=== PATIENT | female | born 1950 | race Caucasian/White ===

== ENCOUNTER 2017-09-13 18:49 | Emergency (ER) | payer MEDICARE ==
[~2017-09-13] VITALS: Ht 167.6 cm; Wt 81.7 kg
[~2017-09-13 18:49] MED LIST: ACYCLOVIR400 MG PO; BUPROPION HCL150 M2 PO; FUROSEMIDE40 MG PO; LANSOPRAZOLE30 MG PO; LOSARTAN POTASS50 MG PO; METFORMIN HCL500 M1 PO; METOPROLOL SUCC25 MG PO; OMEPRAZOLE20 MG PO; RANITIDINE HCL150 MG PO; SIMVASTATIN80 MG PO; TEMAZEPAM15 MG PO
[2017-09-13] MEDS ORDERED: TOUJEO SOL300 UNIT/1 SUB-Q (19:01)
[2017-09-13] MEDS ORDERED: DEMADEX20 MG PO (19:01)
[2017-09-13] MEDS ORDERED: ESTRACE1 MG PO (19:03)
[2017-09-13] MEDS ORDERED: NEURONTIN300 MG PO (19:03)
[2017-09-13] MEDS ORDERED: SPIRIVA18 MCG INH (19:04)
[2017-09-13] MEDS ORDERED: [UNRECOGNIZED DRUG - OTHER] (19:05)
[2017-09-13] MEDS ORDERED: PROMETHAZINE HC25 M1 PO (19:06)
[2017-09-13] MEDS ORDERED: ZOFRAN ODT4 MG PO (21:16)
== END 2017-09-13 21:39 | disposition home or self-care (01) ==
LOC: ED 18:49
DX: A08.4 Viral intestinal infection, unspecified (principal); E11.9 Type 2 diabetes mellitus without complications; I10 Essential (primary) hypertension; Z87.891 Personal history of nicotine dependence; Z90.710 Acquired absence of both cervix and uterus; Z88.5 Allergy status to narcotic agent; Z79.4 Long term (current) use of insulin; Z79.899 Other long term (current) drug therapy
CPT/HCPCS: 80053; 85025; 96361; 96374; 99283; J2405; J7030

== ENCOUNTER 2018-02-27 05:54 | Emergency (ER) | payer MEDICARE ==
[~2018-02-27] VITALS: Ht 167.6 cm; Wt 81.7 kg
[~2018-02-27 05:54] MED LIST changes: +DEMADEX20 MG PO; +ESTRACE1 MG PO; +NEURONTIN300 MG PO; +PROMETHAZINE HC25 M1 PO; +SPIRIVA18 MCG INH; +TOUJEO SOL300 UNIT/1 SUB-Q; +ZOFRAN ODT4 MG PO; +[UNRECOGNIZED DRUG - OTHER]
[2018-02-27] MEDS ORDERED: TESSALON PERLE100 MG PO (06:27)
[2018-02-27] MEDS ORDERED: LEVAQUIN750 MG PO (06:27)
--- NOTE | 2018-02-27 07:07 | EKG ---
[facility] [address] [place] [address] Signed Normal sinus rhythm Normal ECG No previous ECGs available Confirmed by KENNY ARANGO MD ([id number]) on 02/27/2018 7:07:26 AM Electronically Signed By: KENNY ARANGO MD 02/27/18 0707 PATIENT NAME: GEORGIE SAXENA Electrocardiogram DATE OF : 46 PHYSICIAN: KENNY ARANGO MD REPORT #: [id number] REPORT IS CONFIDENTIAL AND NOT TO BE RELEASED WITHOUT AUTHORIZATION
[2018-04-09] MEDS ORDERED: TYLENOL WITH C1 EACH PO (06:16)
[2018-04-09] MEDS ORDERED: AUGMENTIN 500-1 EACH PO (08:41)
== END 2018-02-27 06:37 | disposition home or self-care (01) ==
LOC: ED 05:54
DX: J18.9 Pneumonia, unspecified organism (principal); I10 Essential (primary) hypertension; E11.9 Type 2 diabetes mellitus without complications; Z87.891 Personal history of nicotine dependence; Z88.5 Allergy status to narcotic agent; Z79.4 Long term (current) use of insulin; Z79.899 Other long term (current) drug therapy
CPT/HCPCS: 71046; 93005; 93010; 99283

== ENCOUNTER 2018-12-05 09:36 | Emergency (ER) | payer MEDICARE ==
[~2018-12-05] VITALS: Ht 167.6 cm; Wt 82.5 kg
[~2018-12-05 09:36] MED LIST changes: +AUGMENTIN 500-1 EACH PO; +LEVAQUIN750 MG PO; +TESSALON PERLE100 MG PO; +TYLENOL WITH C1 EACH PO
--- OUTSIDE RECORDS SUMMARY | 2018-12-05 09:38 | XMS ---
PreManage Notification: GEORGIE SAXENA Security Emt Intermediate Events No recent Security Events currently on file CRITERIA MET - PDMP CARE PROVIDERS Tristen Rendon Current PHONE: Unknown César has no Care Guidelines for this patient. E.Mary VISIT COUNT (12 MO.) 2 JANIYA Puckett TOTAL 2 NOTE: Visits indicate total known visits. ED/UCC VISIT TRACKING (12 MO.) 12/05/2018 09:37 JANIYA Perez OR TYPE: Emergency COMPLAINT: - DIZZINESS 02/27/2018 05:55 JANIYA Perez OR TYPE: Emergency COMPLAINT: - SOB DIAGNOSES: - Pneumonia, unspecified organism - Type 2 diabetes mellitus without complications - FPC (current) use of insulin - Other care home (current) drug therapy - Allergy status to narcotic agent status - Personal history of nicotine dependence - Cough - Essential (primary) hypertension INPATIENT VISIT TRACKING (12 MO.) No inpatient visits to display in this time frame [id number]
--- NOTE | 2018-12-05 16:53 | EKG ---
[facility] [address] [place], [place] [address] Signed Normal sinus rhythm Possible Left atrial enlargement Borderline ECG When compared with ECG of 27-FEB-2018 06:04, No significant change was found Confirmed by JESSICA CARTER DO ([id number]) on 12/05/2018 4:53:21 PM Electronically Signed By: JESSICA CARTER DO 12/05/18 1653 PATIENT NAME: GEORGIE SAXENA Electrocardiogram DATE OF : 46 PHYSICIAN: JESSICA CARTER DO REPORT #: [id number] REPORT IS CONFIDENTIAL AND NOT TO BE RELEASED WITHOUT AUTHORIZATION
== END 2018-12-05 12:18 | disposition home or self-care (01) ==
LOC: ED 09:36
DX: R42 Dizziness and giddiness (principal); F64.9 Gender identity disorder, unspecified; E11.9 Type 2 diabetes mellitus without complications; I10 Essential (primary) hypertension; E78.00 Pure hypercholesterolemia, unspecified; Z87.891 Personal history of nicotine dependence; Z90.710 Acquired absence of both cervix and uterus; Z79.899 Other long term (current) drug therapy; Z79.4 Long term (current) use of insulin
CPT/HCPCS: 80053; 81001; 84484; 85025; 93005; 93010; 99284-25

== ENCOUNTER 2021-01-27 06:27 | Emergency (ER) | payer OTHER, MEDICARE ==
[~2021-01-27] VITALS: Ht 167.6 cm; Wt 79.4 kg
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
== END 2021-01-27 07:57 | disposition home or self-care (01) ==
LOC: ED 06:27
DX: S13.9XXA Sprain of joints and ligaments of unspecified parts of neck, initial encounter (principal); R51.9 Headache, unspecified; V40.5XXA Car driver injured in collision with pedestrian or animal in traffic accident, initial encounter; E11.9 Type 2 diabetes mellitus without complications; I10 Essential (primary) hypertension; E78.00 Pure hypercholesterolemia, unspecified; Z87.891 Personal history of nicotine dependence; Z88.0 Allergy status to penicillin; Z79.899 Other long term (current) drug therapy; Z79.4 Long term (current) use of insulin
CPT/HCPCS: 99284; A9270

== ENCOUNTER 2024-02-15 10:52 | Inpatient (IN) | payer MEDICARE ==
[~2024-02-15] VITALS: Ht 167.6 cm; Wt 80.0 kg
--- OUTSIDE RECORDS SUMMARY | 2024-02-15 10:57 | XMS ---
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 E.Mary VISIT COUNT (12 MO.) 1 JANIYA Puckett TOTAL 1 NOTE: Visits indicate total known visits. ED/UCC VISIT TRACKING (12 MO.) 02/15/2024 10:53 JANIYA Perez OR TYPE: Emergency COMPLAINT: - COLD FLU SYMPTOMS. SOB INPATIENT VISIT TRACKING (12 MO.) No inpatient visits to display in this time frame [id number]
[2024-02-15] MEDS ORDERED: DEXAMETHASONE SOD PHOS 10 MG/ML VIAL IV ONE (12:45)
[2024-02-15] MEDS ORDERED: ALBUTEROL/IPRATROPIUM 3 ML NEB INH ONE (12:45)
[2024-02-15] MEDS ORDERED: SODIUM CHLORIDE 0.9% 1,000 ML IV PRN ×2 (12:45→13:45)
[2024-02-15 13:00] LABS: INFLUENZA B NAA NEGATIVE (NEGATIVE); RESPIRATORY SYNCYTIAL VIR NAA NEGATIVE (NEGATIVE)
[2024-02-15 13:04] LABS: BASOPHILS 0.3 % (0-2); EOSINOPHILS 1.2 % (0-6); HEMATOCRIT 34.2 % (35.0-50.0); HEMOGLOBIN 11.3 g/dL (12.0-18.0); LYMPHOCYTES 21.6 % (24-44); MCH 31.6 (27-36); MCHC 33.1 g/dl (30-36); MCV 95.4 fl (81-99); NEUTROPHILS 67.9 % (39-80); PLATELET COUNT 200 K/uL (140-440); RBC 3.58 M/ul (4.3-5.7); RDW 14.4 (10.5-15.0)
[2024-02-15 13:21] LABS: ALBUMIN 2.8 g/dL (3.4-5.0); ALBUMIN/GLOBULIN RATIO 0.74 (1.1-2.4); ANION GAP 12.7 (7-21); BILIRUBIN, TOTAL 0.4 ng/dL (0.2-1.0); BUN/CREATININE RATIO 15.78 (6.0-28.6); CREATININE, SERUM 2.47 mg/dL (0.55-1.02); MAGNESIUM 1.8 mg/dL (1.8-2.4); POTASSIUM 3.7 mmol/L (3.5-5.1); PROTEIN, TOTAL 6.6 g/dL (6.4-8.2)
[2024-02-15] MEDS ORDERED: AZITHROMYCIN 250 MG TAB PO ONE (13:45)
[2024-02-15] MEDS ORDERED: CEFTRIAXONE/SODIUM CHLORIDE 1 GM/100 ML PIGGYBACK IV ONE ×2 (13:45→20:15)
[2024-02-15] MEDS ORDERED: ATORVASTATIN CA80 MG PO (15:13)
[2024-02-15] MEDS ORDERED: BUPROPION XL300 MG PO (15:14)
[2024-02-15] MEDS ORDERED: PROCHLORPERAZINE EDISYLATE 10 MG/2 ML VIAL IV PRN (15:15)
[2024-02-15] MEDS ORDERED: SODIUM CHLORIDE 0.9% 1,000 ML IV SCH (15:15)
[2024-02-15] MEDS ORDERED: ACETAMINOPHEN 325 MG TAB PO PRN (15:15)
[2024-02-15] MEDS ORDERED: DEXTROSE 5% 1,000 ML IV PRN (15:15)
[2024-02-15] MEDS ORDERED: DEXTROSE 50% 50 ML SYR IV PRN ×2 (15:15)
[2024-02-15] MEDS ORDERED: FAMOTIDINE20 MG PO (15:15)
[2024-02-15] MEDS ORDERED: ESTRADIOL0.5 MG PO (15:15)
[2024-02-15] MEDS ORDERED: ondansetron HCL 4 MG/2 ML VIAL IV PRN (15:15)
[2024-02-15] MEDS ORDERED: IBLOOD GLUCOSE TEST STRIP 1 EA TEST XX PRN (15:15)
[2024-02-15] MEDS ORDERED: GLUCAGON,HUMAN RECOMBINANT 1 MG/ML VIAL SUB-Q PRN (15:15)
[2024-02-15] MEDS ORDERED: METOPROLOL SUC100 MG PO (15:16)
[2024-02-15] MEDS ORDERED: MELOXICAM15 MG PO (15:16)
[2024-02-15] MEDS ORDERED: LANSOPRAZOLE30 MG PO (15:16)
[2024-02-15] MEDS ORDERED: POTASSIUM CHLO10 ME1 PO (15:17)
[2024-02-15] MEDS ORDERED: TORSEMIDE20 MG PO (15:17)
[2024-02-15 16:28] VITALS: BP 174/57
--- NOTE | 2024-02-15 16:29 | NUR ---
Pt report received from MAURICIO Fortune in the ED in room 6 at bedside at about 1526 hours. While receiving report, pt states she needs to use the toilet and was escorted to the bathroom down the evelyn by family. Pt is steady on her feet. Pt transferred to M/S room 107 by this RN via stretcher and pt was able to stand and transfer to bed unassisted. VS obtained, SPO2 89% on room air, but pt and her daughter state that 89-90 is her "normal". Expiratory wheezes heard throughout lungs and were slightly diminished in bases. Pt has a harsh barky cough that she states is painful and she reports pain when coughing, in her ribs and chest. She states she has been unable to cough anything up. She is requesting cough syrup. Pt's family is in her room. Assessment complete. Encouraged pt to use her call light if her family leaves and she needs to toilet. IV fluids (NS) running at 125ml/hr per emar. Oriented pt to room. Call light in reach, warm blanket provided, side rails up.
--- NOTE | 2024-02-15 16:38 | NUR ---
medications reconciled using pharmacy records and patient interview
[2024-02-15] MEDS ORDERED: INSULIN LISPRO 100 UNIT/ML ML SUB-Q SCH (17:00)
[2024-02-15] MEDS ORDERED: IBLOOD GLUCOSE TEST STRIP 1 EA TEST VI SCH (17:00)
[2024-02-15] MEDS ORDERED: GUAIFENESIN 10 ML UNIT DOSE CUP PO PRN (17:15)
--- NOTE | 2024-02-15 17:53 | NUR ---
Pt arrived to room 107 at about 1540 hours this shift with multiple family members and has been A&O. Pt is able to ambulate independently with line and tube management. She denies pain until she coughs and then states that it hurts in her chest and throat when she coughs. She requested cough syrup, for which Dr. Quinones so kindly wrote an order. Pt is an insulin and oral medication diabetic but she does not control it at all with her diet and was discussing, with her family, having them bring her some food up so she can have what she wants and not the diet ordered for her here. Pt's sats on room air upon arrival were 89%. Pt and her daughter stated that she is normally around 89-90% at home and does not use oxygen and that she has COPD. Pt has a harsh barky sounding cough that is not productive. Pt has a patent IV in the LAC that has good blood return and is not painful. Pt was educated on s/sx of infection and when to call the nurse to assess the site. Pt's family left at dinnertime. Pt understands to use call light before she tries to go to the bathroom.
[2024-02-15 18:16] VITALS: BP 154/57
--- NOTE | 2024-02-15 19:41 | NUR ---
REPORT RECEIVED FROM DAY SHIFT RN. PT LYING IN BED ALERT AND ORIENTED. REQUESTING HOME MEDS. MD NOTIFIED. NO FURTHER NEEDS. CALL LIGHT IN REACH. WHITE BOARD UPDATED.
[2024-02-15] MEDS ORDERED: GABAPENTIN 300 MG CAP PO SCH (21:00)
[2024-02-15] MEDS ORDERED: TEMAZEPAM 15 MG CAP PO SCH (21:00)
--- NOTE | 2024-02-15 21:00 | NUR ---
MEDICATIONS, INSULIN GIVEN PER MARS. PT A/O, COUGHING OFF AND ON.
[2024-02-15 21:12] VITALS: BP 185/63
[2024-02-15] MEDS ORDERED: BENZONATATE 100 MG CAP PO PRN (22:00)
--- NOTE | 2024-02-15 22:32 | NUR ---
CALL LIGHT ANSWERED. PT UP TO BR WITH MINIMAL SBA TO VOID. BACK TO BED. REPORTS CHRONIC SOB WITH ACTIVITY. SpO2 MID 80'S ON RA UPON RETURNING TO BED. PT RECOVERS QUICKLY TO 92%. LUNGS COARSE IN LOWER LOBES. RESPIRATIONS EVEN. EVENING ASSESSMENT COMPLETE. SCHEDULED MEDS ADMIN PER EMAR. PRN FOR COUGH ADMIN PER REQUEST. DRY/HARSH COUGH NOTED. PT DENIES QUESTIONS OR CONCERS. CALL LIGHT IN REACH.
--- NOTE | 2024-02-15 23:50 | NUR ---
IV PUMP ALARMING. ISSUE RESOLVED. PT SITTING ON SIDE OF BED WITH A "COUGHING FIT" SpO2 92% ON RA. HR 90'S. WARM TEA PROVIDED. NO FURTHER NEEDS.
[2024-02-16] VITALS (12 sets, daily range): BP systolic 149–193; BP diastolic 59–81
--- NOTE | 2024-02-16 01:23 | NUR ---
HUMAN RESOURCES COMPENSATION ANALYST ALERTED THIS RN PT BP ELEVATED. NOTIFIED. NEW TELEPHONE ORDERS RECEIVED VERIFIED WITH READBACK METHOD.
[2024-02-16] MEDS ORDERED: hydrALAZINE HCL 20 MG/ML VIAL IV PRN (01:30)
--- NOTE | 2024-02-16 01:41 | NUR ---
COLLECTED URINE SAMPLE AND SENT TO LAB. GOT PATIENT ICE WATER. PATIENT IS STILL AWAKE. PATIENT HAS CALL LIGHT
--- NOTE | 2024-02-16 01:46 | NUR ---
PRN FOR BP ADMIN PER EMAR. NEW BAG IVF INFUSING WNL. ASSESSMENT COMPLETE. COARSE LUNG SOUNDS HEARD THROUGHOUT. PT DENIES SOB. SpO2 LOW 90'S. NO FURTHER NEEDS. CALL LIGHT IN REACH.
--- NOTE | 2024-02-16 03:22 | NUR ---
CALL LIGHT ANSWERED. PT REPORTS SOB WITH "JERKY" BREATHS. AUDIBLE WHEEZE NOTED. SpO2 LOW 90'S. HR 90'S. 1L/NC PLACED FOR COMFORT. MD NOTIFIED. NEW TELEPHONE ORDERS RECEIVED VERIFIED WITH READBACK METHOD.
[2024-02-16] MEDS ORDERED: ALBUTEROL/IPRATROPIUM 3 ML NEB INH PRN (03:30)
--- NOTE | 2024-02-16 03:44 | NUR ---
PT REPORTS BREATHING IMPROVED AFTER TX. SpO2 HIGH 90'S WITH 1L/NC IN PLACE. HR 90'S. WARM BLANKET PROVIDED. NO FURTHER NEEDS.
--- NOTE | 2024-02-16 04:23 | NUR ---
pt coughing, offered cough medication, accepted. hob elevated, resp even sl labored after coughing. watching tv.
[2024-02-16 05:31] LABS: BASOPHILS 0.5 % (0-2); EOSINOPHILS 0.1 % (0-6); HEMATOCRIT 30.4 % (35.0-50.0); HEMOGLOBIN 10.1 g/dL (12.0-18.0); LYMPHOCYTES 25.1 % (24-44); MCH 31.8 (27-36); MCHC 33.3 g/dl (30-36); MCV 95.5 fl (81-99); NEUTROPHILS 63.3 % (39-80); PLATELET COUNT 183 K/uL (140-440); RBC 3.19 M/ul (4.3-5.7); RDW 14.3 (10.5-15.0)
--- NOTE | 2024-02-16 05:40 | NUR ---
VS AND I&O OBTAINED. PT INCONTINENT OF SMALL AMOUNT BM AFTER COUGHING. UP TO BR WITH MINIMAL SBA TO VOID AND CHANGE BRIEF. PT INDEPENDENT WITH GONZALES CARE. LINENS CHANGED. BACK TO BED, JOHN WELL. PRN FOR HYPERTENTION ADMIN PER EMAR. 1L/NC REMAINS IN PLACE. PT DENIES SOB. SpO2 HIGH 90'S. NO FURTHER NEEDS. CALL LIGHT IN REACH.
[2024-02-16 05:47] LABS: ALBUMIN 2.4 g/dL (3.4-5.0); ALBUMIN/GLOBULIN RATIO 0.67 (1.1-2.4); ANION GAP 14.5 (7-21); BILIRUBIN, TOTAL 0.2 ng/dL (0.2-1.0); BUN/CREATININE RATIO 18.91 (6.0-28.6); CALCIUM 7.1 mg/dL (8.5-10.1); CREATININE, SERUM 1.48 mg/dL (0.55-1.02); MAGNESIUM 1.5 mg/dL (1.8-2.4); PHOSPHORUS, INORGANIC 2.6 mg/dL (2.5-4.9); POTASSIUM 3.5 mmol/L (3.5-5.1)
--- NOTE | 2024-02-16 06:57 | NUR ---
REPORT RECEIVED FROM POWER SHOVEL MECHANIC RN JOCELYN. PATIENT IS SITTING UPRIGHT IN BED WITH EYES OPEN AND RESPIRATIONS ARE EVEN AND UNLABORED. PATIENT STATED NO NEEDS AT THIS TIME. CALL LIGHT AND PERSONAL BELONGINGS ARE WITHIN REACH.
[2024-02-16] MEDS ORDERED: MAGNESIUM SULFATE 4 GM/100 ML BAG IV ONE (08:30)
[2024-02-16] MEDS ORDERED: predniSONE 20 MG TAB PO SCH (09:00)
[2024-02-16] MEDS ORDERED: ENOXAPARIN SODIUM 30 MG/0.3 ML SYR SUB-Q SCH (09:00)
[2024-02-16] MEDS ORDERED: AZITHROMYCIN 500 MG in DEXTROSE 5% 250 ML IV SCH (09:00)
[2024-02-16] MEDS ORDERED: ATORVASTATIN 40 MG TAB PO SCH (09:00)
[2024-02-16] MEDS ORDERED: LANSOPRAZOLE 30 MG TABDIS PO SCH (09:00)
[2024-02-16] MEDS ORDERED: buPROPion HCL XL 300 MG TAB.XL.24H PO SCH (09:00)
[2024-02-16] MEDS ORDERED: ENOXAPARIN SODIUM 40 MG/0.4 ML SYR SUB-Q SCH (09:00)
[2024-02-16] MEDS ORDERED: CEFTRIAXONE/SODIUM CHLORIDE 2 GM/100 ML PIGGYBACK IV SCH (09:00)
[2024-02-16] MEDS ORDERED: GABAPENTIN 600 MG TAB PO SCH (09:00)
--- NOTE | 2024-02-16 09:50 | NUR ---
FULL ASSESSMENT COMPLETE AND DOCUMENTED IN THE CHART. PATIENT IS ALERT AND ORIENTED TIMES FOUR. PATIENT WITH NO COMPLAINTS OF PAIN AT THIS TIME. LUNG SOUNDS WITH EXPIRATORY WHEEZES IN ALL LUNG ACEVES BILATERALLY. PATIENT IS ON 1 L NASAL CANNULA. PATIENT GOT A TREATMENT FROM RT AND THERE IS THE INCENTIVE SPIROMETER AT THE BEDSIDE. PATIENT WITH A DRY HACKING COUGH CARDIAC WITH NORMAL S1 AND S2. RADIAL PULSES ARE STRONG BILATERALLY. SENSATION INTACT AND PATIENT WITH NO COMPLAINTS OF NUMBNESS AND TINGLING. IV SITE IS CLEAN, DRY, AND INTACT. MAGNESIUM SULFATE IS INFUSING AT THIS TIME. IV FLUSHED WITH 10 ML NORMAL SALINE. PATIENT GIVEN FRESH CUP OF ICE WATER AND COFFEE. BOWEL TONES ARE ACTIVE IN ALL FOUR QUADRANTS. PATIENT SKIN INTACT. PATIENT STATED NO FURTHER NEEDS AT THIS TIME. CALL LIGHT AND PERSONAL BELONGINGS ARE WITHIN REACH.
--- NOTE | 2024-02-16 10:30 | NUR ---
PATIENT IS SITTING UPRIGHT IN THE CHAIR AND IS SPEAKING WITH INFRASTRUCTURE DESIGN ENGINEER. MAGENESIUM SULFATE INFUSION COMPLETE. PATIENT GIVEN FRESH CUP OF ICE WATER. IV FLUSHED WITH 10 ML NORMAL SALINE. PATIENT STATED NO FURTHER NEEDS AT THIS TIME. CALL LIGHT AND PERSONAL BELONGINGS ARE WITHIN REACH.
--- NOTE | 2024-02-16 10:39 | NUR ---
VISITED DURING SPIRITUAL CARE ROUNDS. PT EXPRESSED DESIRE TO SLEEP SO SHORT VISIT. PROVIDED SUPPORTIVE PRESENCE, PROVIDED PRAYER. PT EXPRESSED GRATITUDE.
--- NOTE | 2024-02-16 11:19 | NUR ---
PATIENT IS SITTING UPRIGHT IN THE CHAIR AFTER AMBULATING TO THE BATHROOM TO URINATE. IV FLUSHED WITH 10 ML NORMAL SALINE AND ANTIBIOTICS ARE INFUSING AT THIS TIME. PATIENT STATED NO FURTHER NEEDS AT THIS TIME. CALL LIGHT AND PERSONAL BELONGINGS ARE WITHIN REACH.
[2024-02-16] MEDS ORDERED: PHARMACY RENAL DOSE ADJUSTMENT 1 DOSE MISC PO SCH (12:00)
--- NOTE | 2024-02-16 12:34 | NUR ---
1200 INSULIN ADMINISTERED PER THE EMAR. PATIENT IS SITTING UPRIGHT IN THE CHAIR. RN PLACED DINNER AND BREAKFAST ORDER FOR THE PATIENT. IN NS IS INFUSING AT THIS TIME. PATIENT STATED NO FURTHER NEEDS AT THIS TIME. CALL LIGHT AND PERSONAL BELONGINGS ARE WITHIN REACH.
--- NOTE | 2024-02-16 13:30 | NUR ---
SPOKE WITH PATIENT DAUGHTER RICO PATIENT WAS ATTEMPTING TO NAP. PATIENT LIVES IN A ONE LEVEL APARTMENT IN [facility]. PATIENT DAUGHTER AND GRANDCHILDREN LIVE IN THE SAME COMPLEX. PATIENT DOES NOT REQUIRE ANY DME AND IS INDEPENDENT WITH ALL ADLS. PATIENT IS ABLE TO DRIVE, SHOP AND IS STILL WORKING IN ADMITTING AT THIS TIME. NO FINANCIAL NEEDS NOTED AT THIS TIME. ALL DEMOGRAPHIC INFORMATION REVIEWED. PER DAUGHTER RICO SHE BELIEVES THE PATIENT HAS NO CASE MANAGEMENT NEEDS AT THIS TIME.
--- NOTE | 2024-02-16 14:11 | NUR ---
UR NOTE INPATIENT ORDER 02/16/24 0937 CMS 2 MIDNIGHT RULE EXPECTED LOS >2 [place] PRIMARY INSURANCE: MEDICARE
--- NOTE | 2024-02-16 14:49 | NUR ---
RIGHT A/C IV REMOVED WITH CATHETER INTACT. LEFT A/C IV REMOVED WITH CATHETER INTACT.
--- NOTE | 2024-02-16 15:49 | NUR ---
PATIENT IS SITTING UPRIGHT IN BED AT THIS TIME. PATIENT WITH NO COMPLAINTS OF PAIN AT THIS TIME. IV SITE WITH NS INFUSING AT 125 ML/HR. IV DRESSING IS CLEAN DRY AND INTACT. PATIENT IS ON ROOM AIR. LUNG SOUNDS IN THE UPPER LOBES BILATERALLY WITH EXPIRATORY WHEEZES. RALES AND EXPIRATORY WHEEZES AUSCULTATED IN THE LOWER LOBES BILATERALLY. RT CAME IN TO DO A BREATHING TREATMENT AT THIS TIME. PATIENT IS NOT COUGHING AND STATED NO FURTHER NEEDS AT THIS TIME. CALL LIGHT AND PERSONAL BELONGINGS ARE WITHIN REACH.
[2024-02-16] MEDS ORDERED: METOPROLOL SUCCINATE 100 MG TABCR PO SCH (16:27)
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
--- NOTE | 2024-02-16 17:01 | NUR ---
IV SITE IS SALINE LOCKED AND IV FLUIDS HAVE BEEN DISCONTINUED. 1700 INSULIN ADMINISTERED AT THIS TIME. METOPROLOL HOME MEDICATION RESTARTED THIS EVENING WELL. VITAL SIGNS TAKEN AND DOCUMENTED IN THE CHART. DINNER TRAY IS AT THE PATIENTS BEDSIDE. REMEDIOS STATED NO FURTHER NEEDS AT THIS TIME. CALL LIGHT AND PERSONAL BELONGINGS ARE WITHIN REACH.
--- NOTE | 2024-02-16 17:20 | NUR ---
PRN TESSALON SCOTT ADMINISTERED PER THE EMAR. PATIENT IS SITTING ON THE EDGE OF BED. PATIENT STATED THEY ARE SITTING UP BECAUSE THEY WERE FEELING NAUSEOUS BUT SINCE THEY HAVE BEEN SITTING UP THEY FEEL BETTER. PATIENT STATED NOT WANTING ANY MEDICATION FOR NAUSEA. PATIENT GIVEN A FRESH CUP OF ICE WATER. PATIENT STATED NO FURTHER NEEDS AT THIS TIME. CALL LIGHT AND PERSONAL BELONGINGS ARE WITHIN REACH.
--- NOTE | 2024-02-16 17:50 | NUR ---
BP WAS 188/7N WITH A MAP OF 103. HR WAS 101. PATIENT WITH NO COMPLAINTS OF NAUSEA AT THIS TIME. PATIENT STATED NO FURTHER NEEDS AT THIS TIME. CALL LIGHT AND PERSONAL BELONGINGS ARE WITHIN REACH.
--- NOTE | 2024-02-16 17:57 | NUR ---
RN NOTIFIED OF THE PATIENTS BP, MAP, AND HR. MD GAVE VERBAL ORDER TO RE-CHECK BP IN ONE HOUR AND IF THE SYSTOLIC IS GREATER THAN 160 TO GIVE THE PRN HYDRALAZINE. CALL ENDED.
--- NOTE | 2024-02-16 19:30 | NUR ---
REPORT RECEIVED FROM DAY SHIFT RN. PT LYING IN BED ALERT AND ORIENTED. REQUESTING OXYGEN OFF. SpO2 98% WITH 2L/NC. PT REMAINS LOW 90'S ON RA. DENIES SOB. OCCASIONAL DRY COUGH. NO FURTHER NEEDS. FAMILY AT BEDSIDE. CALL LIGHT IN REACH. WHITE BOARD UPDATED.
[2024-02-16] MEDS ORDERED: ALBUTEROL/IPRATROPIUM 3 ML NEB INH SCH (20:00)
--- NOTE | 2024-02-16 20:13 | NUR ---
VS AND I&O OBTAINED. EVENING ASSESSMENT COMPLETE. PT REMAINS ON RA. SpO2 MID 90'S. PT DENIES SOB AT REST. LUNGS COARSE WITH OCCASIONAL WHEEZE IN LLL. PT REQUESTING PRN FOR SLEEP. NOTIFIED. ORDERS PLACED.
[2024-02-16] MEDS ORDERED: INSULIN GLARGINE-YFGN 100 UNIT/ML ML SUB-Q SCH (21:00)
[2024-02-16] MEDS ORDERED: hydrOXYzine pamoate 25 MG CAP PO SCH (21:00)
[2024-02-16] MEDS ORDERED: LOSARTAN POTASSIUM 50 MG TAB PO SCH (21:00)
--- NOTE | 2024-02-16 21:33 | NUR ---
PT SITTING ON SIDE OF BED PLAYING GAME ON PHONE. SLEEP AIDS ADMINISTERED. ROOM TEMP ADJUSTED. PT DENIES PAIN. NO FURTHER NEEDS. BED ALARM FOR SAFETY.
--- NOTE | 2024-02-16 23:44 | NUR ---
CALL LIGHT ANSWERED. PT UP TO BR WITH MINIMAL SBA TO VOID 100 ML YELLOW URINE. BACK TO BED, JOHN WELL. GAIT STEADY. NO FURTHER NEEDS. BED ALARM FOR SAFETY.
[2024-02-17] VITALS (7 sets, daily range): BP systolic 156–200; BP diastolic 61–83
--- NOTE | 2024-02-17 02:14 | NUR ---
CALL LIGHT ANSWERED. PT UP TO BR TO VOID WITH SBA. BACK TO BED, JOHN WELL. ASSESSMENT COMPLETE. SPOT CHECK SpO2 85-88% ON RA. 1L/NC IN PLACE. PT DENIES SOB. FRESH WATER PROVIDED. NO FURTHER NEEDS. CALL LIGHT IN REACH.
--- NOTE | 2024-02-17 04:20 | NUR ---
PT UP TO BR TO VOID. BACK TO BED. GAIT STEADY. SpO2 90% ON RA UPON RETURNING TO BED. OXYGEN OFF AT THIS TIME. NO FURTHER NEEDS.
--- NOTE | 2024-02-17 05:20 | NUR ---
LAB IN FOR MORNING DRAW. PT SITTING IN RECLINER. REPORTS FEELING MUCH BETTER THIS AM AFTER GETTING SLEEP. VS AND I&O OBTAINED, WNL. SpO2 92% ON RA. PT REPORTS SLIGHT NAUSEA THAT SHE BELIEVES IS DUE TO NOT HAVING DINNER LAST NIGHT. SALTINE CRACKERS PROVIDED. PRN FOR NAUSEA OFFERED, PT DECLINED. NO FURTHER NEEDS.
[2024-02-17 05:26] LABS: BASOPHILS 0.4 % (0-2); EOSINOPHILS 0.2 % (0-6); HEMATOCRIT 32.1 % (35.0-50.0); HEMOGLOBIN 10.6 g/dL (12.0-18.0); LYMPHOCYTES 18.8 % (24-44); MCH 31.3 (27-36); MCHC 33.1 g/dl (30-36); MCV 94.6 fl (81-99); MONOCYTES 6.1 % (0-12); NEUTROPHILS 74.5 % (39-80); PLATELET COUNT 235 K/uL (140-440); RBC 3.39 M/ul (4.3-5.7); RDW 14.5 (10.5-15.0)
[2024-02-17 05:39] LABS: ANION GAP 14.4 (7-21); BUN/CREATININE RATIO 11.5 (6.0-28.6); CALCIUM 7.9 mg/dL (8.5-10.1); CREATININE, SERUM 1.13 mg/dL (0.55-1.02); MAGNESIUM 2.2 mg/dL (1.8-2.4); POTASSIUM 3.4 mmol/L (3.5-5.1)
--- NOTE | 2024-02-17 06:02 | NUR ---
PT REPORTS CONTINUED NAUSEA. PRN N/V ADMIN PER EMAR. NO FURTHER NEEDS.
--- NOTE | 2024-02-17 07:10 | NUR ---
RECEIVED REPORT FROM MAURICIO BANKS. PT UP TO CHAIR WATCHING TV, STATES NO NEEDS AT THIS TIME, CALL LIGHT WITHIN REACH. ASSUMING CARE OF PT.
[2024-02-17] MEDS ORDERED: POTASSIUM CHLORIDE 40 MEQ,LIDOCAINE HCL 1% 40 MG in DEXTROSE 5% 500 ML IV ONE (07:15)
--- NOTE | 2024-02-17 08:08 | NUR ---
CROWN POUNCER ENTERED ROOM FOR MORNING ROUNDING. PT IS UP SITTING IN HER CHAIR. CROWN POUNCER GAVE PT FRESH ICE WATER PT STATES NO FURTHER COMPLAINTS OR CONCERNS
[2024-02-17] MEDS ORDERED: ENOXAPARIN SODIUM 40 MG/0.4 ML SYR SUB-Q SCH (09:00)
--- NOTE | 2024-02-17 09:04 | NUR ---
PT UP TO CHAIR. TAKES PO MEDICATIONS WITHOUT DIFFICULTY. PT STATES SHE IS HAVING 8/10 HEADACHE PAIN, REQUESTS PRN TYLENOL, GIVEN. PT FINISHES BREAKFAST, TRAY TAKEN. UPPER LOBES REMAIN CLEAR, LOWER LOBES COARSE. PT DENIES COUGH AT THIS TIME. PT CONTINUES TO HAVE CHRONIC NEUROPATHY. PT STATES NO NEEDS AT THIS TIME, CALL LIGHT WITHIN REACH.
--- NOTE | 2024-02-17 09:17 | NUR ---
VERIFIED WITH MD, PT HAS POTASSIUM/FLUIDS RUNNING AT THIS TIME, WHICH IS INCOMPATIBLE WITH IV AZITHROMYCIN, HE WILL CHANGE HER OVER TO ORAL ANTIBIOTICS SHE IS DISCHARGING HOME TODAY. PRIMARY RN-CONI INFORMED WELL, AWAITING NEW ORDERS TO BE INPUT.
[2024-02-17] MEDS ORDERED: AZITHROMYCIN 250 MG TAB PO ONE (09:30)
[2024-02-17] MEDS ORDERED: CEFDINIR300 MG PO (09:31)
[2024-02-17] MEDS ORDERED: AZITHROMYCIN250 MG PO (09:31)
[2024-02-17] MEDS ORDERED: BENZONATATE100 MG PO (09:33)
--- NOTE | 2024-02-17 10:02 | NUR ---
PT WAS IN ROOM, IV ALARMING, C/O HOT/SWEATY, COLD WASH CLOTH PROVIDED TO PATIENT. BP IS ELEVATED BUT PATIENT IS SITTING ON EDGE OF BED, WANTED TO WAIT ON MEDS AT THIS TIME AND JUST SEE IF HER BP IMPROVES SHE SITS ON EDGE OF BED. REPEAT VITALS FROM CAREGIVER STILL SHOW ELEVATED BP. PRIMARY RN NOTIFIED OF PATIENT UPDATE. SHE WILL FOLLOW-UP WITH MEDS/HYDRALAZINE.
--- NOTE | 2024-02-17 10:51 | NUR ---
PT UP TO RESTROOM WITH SBA, STATES SHE WOULD LIKE TO SIT FOR AWHILE, INSTRUCTED TO PULL CALL LIGHT IN BATHROOM WHEN FINISHED, PT VERBALIZES UNDERSTANDING.
--- NOTE | 2024-02-17 11:01 | NUR ---
PT BACK TO BED FROM RESTROOM WITH SBA. PT STATES NO NEEDS AT THIS TIME, CALL LIGHT WITHIN REACH.
--- NOTE | 2024-02-17 12:05 | NUR ---
PT DRESSES SELF IN OWN CLOTHES. VSS. IV DC'D WNL, WRAPPED IN GAUZE AND COBAN PER PROTOCOL. PT LEAVING WITH ALL PERSONAL BELONGINGS. DISCHARGE EDUCATION AND PACKET GIVEN, PT VERBALIZES UNDERSTANDING AND STATES ALL QUESTIONS HAVE BEEN ANSWERED. PT AMBULATES TO WHEELCHAIR WITH SBA, WHEELED TO FRONT OF BUILDING BY NURSING PERSONEL.
[2024-02-17 12:41] LABS: STREPTOCOCCUS PNEUMONIAE AG,UR Negative (Negative)
[2024-02-17 18:46] LABS: LEGIONELLA PNEUMOPHILA AG,URN Negative (Negative)
== END 2024-02-17 12:05 | disposition home or self-care (01) | DRG 682 ==
LOC: ED 10:52 → MS 10:54
PROVIDERS: Emergency Medicine; ADMIT Family Medicine; ATTEND Family Medicine
DX: N17.9 Acute kidney failure, unspecified (principal); J18.9 Pneumonia, unspecified organism; J96.01 Acute respiratory failure with hypoxia; J44.0 Chronic obstructive pulmonary disease with (acute) lower respiratory infection; Z66 Do not resuscitate; E11.9 Type 2 diabetes mellitus without complications; E83.42 Hypomagnesemia; E87.6 Hypokalemia; I10 Essential (primary) hypertension; E78.00 Pure hypercholesterolemia, unspecified; Z90.710 Acquired absence of both cervix and uterus; Z87.891 Personal history of nicotine dependence; Z88.5 Allergy status to narcotic agent; Z79.899 Other long term (current) drug therapy; Z79.84 Long term (current) use of oral hypoglycemic drugs; Z79.4 Long term (current) use of insulin
CPT/HCPCS: 36415; 71045; 80048; 80053; 83735; 84100; 85025; 87449; 87502; 87899; 94640; 94760; 94761; 96361; 96365; 96375; 97161; 97166; 99285-25; A9270; J0360; J0456; J0696; J1100; J1650; J1815; J2405; J3475; J3480; J3490; J7030; J7060; J7512; Q0177; U0002

== ENCOUNTER 2024-05-13 19:09 | Inpatient (IN) | payer MEDICARE ==
[~2024-05-13] VITALS: Ht 167.6 cm; Wt 81.8 kg
[~2024-05-13 19:09] MED LIST changes: +ATORVASTATIN CA80 MG PO; +AZITHROMYCIN250 MG PO; +BENZONATATE100 MG PO; +BUPROPION XL300 MG PO; +CEFDINIR300 MG PO; +ESTRADIOL0.5 MG PO; +FAMOTIDINE20 MG PO; +MELOXICAM15 MG PO; +METOPROLOL SUC100 MG PO; +POTASSIUM CHLO10 ME1 PO; +TORSEMIDE20 MG PO
--- OUTSIDE RECORDS SUMMARY | 2024-05-13 19:10 | XMS ---
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 E.Mary VISIT COUNT (12 MO.) 2 JANIYA Puckett TOTAL 2 NOTE: Visits indicate total known visits. ED/UCC VISIT TRACKING (12 MO.) 05/13/2024 19:09 JANIYA Perez OR TYPE: Emergency COMPLAINT: - FALL 02/15/2024 10:53 JANIYA Perez OR TYPE: Emergency COMPLAINT: - COLD FLU SYMPTOMS. SOB INPATIENT VISIT TRACKING (12 MO.) 02/16/2024 09:37 JANIYA Perez OR TYPE: Medical Surgical COMPLAINT: - [place] DIAGNOSES: - Acquired absence of both cervix and uterus - Acquired absence of both cervix and uterus - Acute kidney failure, unspecified - Acute respiratory failure with hypoxia - Acute respiratory failure with hypoxia - Allergy status to narcotic agent - Allergy status to narcotic agent - Chronic obstructive pulmonary disease with (acute) lower respiratory infection - Chronic obstructive pulmonary disease with (acute) lower respiratory infection - Do not resuscitate - Do not resuscitate - Essential (primary) hypertension - Essential (primary) hypertension - Hypokalemia - Hypokalemia - Hypomagnesemia - Hypomagnesemia - bed bug exterminator (current) use of insulin - bed bug exterminator (current) use of insulin - bed bug exterminator (current) use of oral hypoglycemic drugs - assisted (current) use of oral hypoglycemic drugs - Other termite technician (current) drug therapy - Other alf (current) drug therapy - Personal history of nicotine dependence - Personal history of nicotine dependence - Pneumonia, unspecified organism - Pneumonia, unspecified organism - Pure hypercholesterolemia, unspecified - Pure hypercholesterolemia, unspecified - Type 2 diabetes mellitus without complications - Type 2 diabetes mellitus without complications [email or web address]
[2024-05-13 19:26] LABS: BASOPHILS 0.1 % (0-2); EOSINOPHILS 1.1 % (0-6); HEMATOCRIT 34.5 % (35.0-50.0); HEMOGLOBIN 11.3 g/dL (12.0-18.0); MCH 31.6 (27-36); MCHC 32.9 g/dl (30-36); MCV 96.1 fl (81-99); MONOCYTES 4.1 % (0-12); NEUTROPHILS 92.7 % (39-80); PLATELET COUNT 163 K/uL (140-440); RBC 3.59 M/ul (4.3-5.7)
[2024-05-13 19:40] LABS: ALBUMIN 2.6 g/dL (3.4-5.0); ALBUMIN/GLOBULIN RATIO 0.65 (1.1-2.4); ALCOHOL, MEDICAL <3 ng/dL (<3); ALKALINE PHOSPHATASE 297 U/L (46-116); ALT (SGPT) 484 U/L (14-59); ANION GAP 15.4 (7-21); AST (SGOT) 233 U/L (15-37); BILIRUBIN, TOTAL 2.4 ng/dL (0.2-1.0); BUN/CREATININE RATIO 14.71 (6.0-28.6); CALCIUM 8.5 mg/dL (8.5-10.1); CARBON DIOXIDE 27 mmol/L (21-32); CHLORIDE 97 mmol/L (98-107); CREATININE, SERUM 2.99 mg/dL (0.55-1.02); GLOMERULAR FILTRATION RATE,EST 16 mL/min (>60); POTASSIUM 4.4 mmol/L (3.5-5.1); PROTEIN, TOTAL 6.6 g/dL (6.4-8.2); UREA NITROGEN 44 mg/dL (7-18)
[2024-05-13 20:00] LABS: ABO O; RH POSITIVE
[2024-05-13 20:01] LABS: ANTIBODY SCREEN NEGATIVE
[2024-05-13] MEDS ORDERED: SODIUM CHLORIDE 0.9% 1,000 ML IV ONE (21:00)
[2024-05-13 21:19] LABS: BILIRUBIN, URINE NEGATIVE (negative); BLOOD/HGB, URINE NEGATIVE (Negative); KETONE, URINE NEGATIVE (Negative); LEUK ESTERASE, URINE NEGATIVE (negative); NITRITE, URINE NEGATIVE (negative); PH, URINE 5.5 (5-7)
[2024-05-13 21:37] LABS: AMPHETAMINES, URINE NEGATIVE (NEGATIVE); BARBITURATES, URINE NEGATIVE (NEGATIVE); BENZODIAZEPINE, URINE NEGATIVE (NEGATIVE); BUPRENORPHINE, URINE NEGATIVE (NEGATIVE); CANNABINOID, URINE POSITIVE (NEGATIVE); COCAINE, URINE NEGATIVE (NEGATIVE); ECSTASY, URINE NEGATIVE (NEGATIVE); FENTANYL, URINE NEGATIVE (NEGATIVE); METHADONE, URINE NEGATIVE (NEGATIVE); OPIATES, URINE NEGATIVE (NEGATIVE); OXYCODONE, URINE NEGATIVE (NEGATIVE); PHENCYCLIDINE, URINE NEGATIVE (NEGATIVE)
[2024-05-13] MEDS ORDERED: LACTATED RINGER'S 1,000 ML IV ONE (23:15)
[2024-05-14] VITALS (10 sets, daily range): BP systolic 133–186; BP diastolic 60–82
[2024-05-14 00:44] LABS: ANION GAP 12.9 (7-21); BUN/CREATININE RATIO 15.09 (6.0-28.6); CALCIUM 7.6 mg/dL (8.5-10.1); CREATININE, SERUM 2.65 mg/dL (0.55-1.02); POTASSIUM 3.9 mmol/L (3.5-5.1)
[2024-05-14 02:00] LABS: BILIRUBIN, URINE NEGATIVE (negative); BLOOD/HGB, URINE TRACE-I (Negative); KETONE, URINE NEGATIVE (Negative); LEUK ESTERASE, URINE NEGATIVE (negative); NITRITE, URINE NEGATIVE (negative); PH, URINE 5.5 (5-7)
[2024-05-14] MEDS ORDERED: SODIUM CHLORIDE 0.9% 1,000 ML IV SCH ×2 (02:00→21:15)
[2024-05-14] MEDS ORDERED: ondansetron HCL 4 MG/2 ML VIAL IV PRN ×2 (02:00→10:45)
[2024-05-14] MEDS ORDERED: HYDROmorphone HCL 1 MG/ML SYR IV PRN (02:00)
[2024-05-14] MEDS ORDERED: LIDOCAINE 2% VISCOUS 6 ML SYR TOP ONE (02:00)
[2024-05-14] MEDS ORDERED: ACETAMINOPHEN 325 MG TAB PO PRN (02:00)
--- NOTE | 2024-05-14 02:20 | NUR ---
PATIENT TO FLOOR FROM ER BY THIS RN. REPORT RECIEVED FROM OVERHAULER HELPER. PATIENT TRANSFERRED FROM STRETCHER TO BED WITH SBA. VS OBTAINED AND RECORDED. ASSESSMENT COMPLETE. PATIENT DENIES PAIN OR SOB. CPOX IN PLACE. TELE #[address] IV FLUID INFUSING PER ORDER. ICE PROVIDED PER PATIENT REQUEST. PATIENT AND DAUGHTER EDUCATED TO ROOM AND CALL LIGHT. PATIENT AND DAUGHTER VERBALIZE UNDERSTANDING. DAUGHTER HEADED HOME FOR THE NIGHT. PATIENT HAS NO FURTHER NEEDS. CALL LIGHT IN REACH.
[2024-05-14 02:22] LABS: BACTERIA, URINE RARE /hpf (negative); CASTS, URINE NONE SEEN \\lpf; COLLECTION TYPE, URINE CLEAN CATCH; CRYSTALS, URINE NONE SEEN (0-1+); EPITHELIAL CELLS, URINE SQUAMOUS 1+ /lpf (0-1+); REFLEX CULTURE, URINE No (No)
--- NOTE | 2024-05-14 03:52 | NUR ---
PATIENT RESTING IN BED WATCHING TV. PATIENT DENIES NEEDS AT THIS TIME. PATIENT 93% ON 1L NC. NO FURTHER NEEDS. CALL LIGHT IN REACH.
[2024-05-14 05:35] LABS: BASOPHILS 0.1 % (0-2); EOSINOPHILS 1.3 % (0-6); HEMATOCRIT 31.5 % (35.0-50.0); HEMOGLOBIN 10.5 g/dL (12.0-18.0); LYMPHOCYTES 4.2 % (24-44); MCH 31.8 (27-36); MCHC 33.2 g/dl (30-36); MCV 95.6 fl (81-99); MONOCYTES 5.5 % (0-12); NEUTROPHILS 88.9 % (39-80); PLATELET COUNT 120 K/uL (140-440); RBC 3.29 M/ul (4.3-5.7); RDW 14.4 (10.5-15.0)
--- NOTE | 2024-05-14 05:52 | NUR ---
DOCUMENT CONTROL COORDINATOR OBTAINED VITALS AND I&O. PT STATES NO FURTHER NEEDS AT THIS TIME. CALL LIGHT WITHIN REACH.
[2024-05-14 05:53] LABS: ALBUMIN 2.2 g/dL (3.4-5.0); ALBUMIN/GLOBULIN RATIO 0.59 (1.1-2.4); ANION GAP 12.7 (7-21); BILIRUBIN, TOTAL 1.6 ng/dL (0.2-1.0); BUN/CREATININE RATIO 15.66 (6.0-28.6); CALCIUM 7.7 mg/dL (8.5-10.1); CREATININE, SERUM 2.49 mg/dL (0.55-1.02); MAGNESIUM 1.4 mg/dL (1.8-2.4); POTASSIUM 3.7 mmol/L (3.5-5.1); PROTEIN, TOTAL 5.9 g/dL (6.4-8.2)
--- NOTE | 2024-05-14 06:35 | NUR ---
MD CALLED ABOUT PATIENT BLOOD PRESSURE AND HEART RATE. NEW ORDERS RECEIVED. ORDERS VERIFIED USING REPEATBACK METHOD. THIS RN ALSO UPDATED MD OF PATIENT MORNING GLUCOSE LAB. NO NEW ORDERS. THIS RN PROVIDED PATIENT WITH ORANGE JUICE. PATIENT DRANK ONE WHOLE CUP OF ORANGE JUICE. PATIENT DENIES S/S OF HYPOGLYCEMIA.
--- NOTE | 2024-05-14 07:05 | NUR ---
REPORT RECEIVED FROM PAROLE BOARD MEMBER RN AISSATOU. PATIENT IS LYING IN BED WITH EYES OPEN AND RESPIRATIONS ARE EVEN AND UNLABORED. PATIENT STATED NO FURTHER NEEDS AT THIS TIME. CALL LIGHT AND PERSONAL BELONGINGS ARE WITHIN REACH.
--- NOTE | 2024-05-14 07:52 | NUR ---
PT USES CALL LIGHT REQUESTING ICE WATER AND TEMPERATURE TO BE LOWERED, GIVEN. PT STATES NO FURTHER NEEDS AT THIS TIME, CALL LIGHT WITHIN REACH.
--- NOTE | 2024-05-14 08:36 | NUR ---
0900 MEDICATIONS ADMINISTERED PER THE EMAR. FULL ASSESSMENT COMPLETE AND DOCUMENTED IN THE CHART. PATIENT WITH NO COMPLAINTS OF PAIN AT THIS TIME. PATIENT IS ALERT AND ORIENTED TO SELF AND MONTH ONLY. CARDIAC WITH NORMAL S1 AND S2 ON AUSCULTATION. RADIAL PULSES ARE STRONG BILATERALLY. PATIENT IS ON TELE #9 IN SINUS RHYTHM. HR IS 95. LUNG SOUNDS ARE CLEAR IN THE UPPER LOBES BILATERALLY AND DIMINISHED IN THE BASES BILATERALLY. PATIENT IS ON 1 L NC THAT IS NOT CHRONIC. CPOX IS AT THE BEDSIDE. BOWEL TONES ARE ACTIVE IN ALL FOUR QUADRANTS. PATIENT IS ON A REGULAR DIET AND THEIR LAST BOWEL MOVEMENT WAS 05/13/24. PATIENT WITH NUMBNESS AND TINGLING IN BILATERAL LOWER EXTREMITIES. IV SITE IN THE RIGHT WRIST FLUSHED WITH 10 ML NORMAL SALINE. IV DRESSING IS CLEAN, DRY, AND INTACT. NS IS INFUSING AT 125 ML/HR. PATIENT STATED NO FURTHER NEEDS AT THIS TIME. CALL LIGHT AND PERSONAL BELONGINGS ARE WITHIN REACH.
[2024-05-14] MEDS ORDERED: LOSARTAN POTASSIUM 50 MG TAB PO SCH ×2 (09:00→12:16)
[2024-05-14] MEDS ORDERED: METOPROLOL SUCCINATE 100 MG TABCR PO SCH ×2 (09:00→12:17)
[2024-05-14] MEDS ORDERED: MAGNESIUM SULFATE 2 GM/50 ML BAG IV ONE (09:30)
[2024-05-14] MEDS ORDERED: DEXTROSE 50% 50 ML SYR IV PRN ×2 (10:45)
[2024-05-14] MEDS ORDERED: DEXTROSE 5% 1,000 ML IV PRN (10:45)
[2024-05-14] MEDS ORDERED: IBLOOD GLUCOSE TEST STRIP 1 EA TEST XX PRN (10:45)
[2024-05-14] MEDS ORDERED: GLUCAGON,HUMAN RECOMBINANT 1 MG/ML VIAL SUB-Q PRN (10:45)
--- NOTE | 2024-05-14 10:55 | NUR ---
PATIENT IS RESTING IN BED WITH EYES CLOSED AND RESPIRATIONS ARE EVEN AND UNLABORED. CPOX AT THE BEDSIDE. CALL LIGHT AND PERSONAL BELONGINGS ARE WITHIN REACH.
[2024-05-14] MEDS ORDERED: PHARMACY RENAL DOSE ADJUSTMENT 1 DOSE MISC PO SCH (12:00)
[2024-05-14] MEDS ORDERED: IBLOOD GLUCOSE TEST STRIP 1 EA TEST VI SCH (12:00)
[2024-05-14] MEDS ORDERED: INSULIN LISPRO 100 UNIT/ML ML SUB-Q SCH (12:00)
[2024-05-14] MEDS ORDERED: buPROPion HCL XL 150 MG TAB.XL.24H PO SCH (12:13)
[2024-05-14] MEDS ORDERED: GABAPENTIN 300 MG CAP PO SCH (12:15)
[2024-05-14] MEDS ORDERED: estradioL 1 MG TAB PO SCH (12:15)
[2024-05-14] MEDS ORDERED: TORSEMIDE 20 MG TAB PO SCH (12:18)
--- NOTE | 2024-05-14 12:30 | NUR ---
PATIENT IS SITTING UPRIGHT IN THE BED AND FINISHED WITH LUNCH. LUNCH TRAY REMOVED FROM THE ROOM AT THIS TIME. PATIENT WITH A VISITOR SITTING AT THE BEDSIDE. CPOX AT BEDSIDE. PATIENT STATED NO FURTHER NEEDS AT THIS TIME, CALL LIGHT AND PERSONAL BELONGINGS ARE WITHIN REACH.
[2024-05-14] MEDS ORDERED: CELECOXIB200 MG PO (12:40)
[2024-05-14] MEDS ORDERED: VENTOLIN HFA18 GM INH (12:50)
--- NOTE | 2024-05-14 13:33 | NUR ---
1200 MEDICATIONS ADMINISTERED PER THE EMAR. PATIENT IS LYING IN BED WITH A VISITOR SITTING AT THE BEDSIDE. CPOX IN PLACE. PATIENT IS ON ROOM AIR. CARDIAC WITH NORMAL S1 AND S2 ON AUSCULTATION. PATIENT WITH NO COMPLAINTS OF PAIN AT THIS TIME. IV SITE FLUSHED WITH 10 ML NORMAL SALINE. IV DRESSING IS CLEAN, DRY, AND INTACT. PATIENT IS ON TELEMETRY NUMBER 9. PATIENT IS IN SINUS RHYTHM WITH A HR OF 73. NS IS INFUSING AT 125 ML/HR. PATIENT STATED NO FURTHER NEEDS AT THIS TIME. CALL LIGHT AND PERSONAL BELONGINGS ARE WITHIN REACH.
--- NOTE | 2024-05-14 14:22 | NUR ---
PATIENT IS LYING IN BED AND SPEAKING WITH TWO VISITORS SITTING AT THE BEDSIDE. CALL LIGHT AND PERSONAL BELONGINGS ARE WITHIN REACH.
--- NOTE | 2024-05-14 15:46 | NUR ---
PATIENT IS SITTING UPRIGHT IN BED AND RESPIRATIONS ARE EVEN AND UNLABORED. PATIENT IS ON ROOM AIR. PATIENT WITH HER DAUGHTER AND SON SITTING AT THE BEDSIDE TALKING. RN GAVE UPDATE TO HER PATIENTS CHILDREN PER PATIENT REQUEST. PATIENT AND HER KIDS STATED NO FURTHER NEEDS AT THIS TIME. CALL LIGHT AND PERSONAL BELONGINGS ARE WITHIN REACH.
--- NOTE | 2024-05-14 16:00 | NUR ---
PATIENT IN BED AT THIS TIME. ADMINISTRATIVE AIDE PROVIDED PATIENT WITH FRESH ICE WATER. CALL LIGHT WITHIN REACH, NO FURTHER NEEDS AT THIS TIME.
--- NOTE | 2024-05-14 16:26 | NUR ---
MED REC COMPLETE
--- NOTE | 2024-05-14 16:43 | NUR ---
PATIENT IS LYING IN BED ON ROOM AIR WITH THE CPOX AT THE BEDSIDE. PATIENT WITH HER DAUGHTER AT THE BEDSIDE. AND RN ROUNDED WITH THE PATIENT AND FAMILY MEMBER. NOTIFIED OF PATIENT CONCERN ABOUT RESTARTING GABAPENTIN AND ESTRADIOL HOME DOSE. PATIENT STATED NO FURTHER NEEDS AT THIS TIME. CALL LIGHT AND PERSONAL BELONGINGS ARE WITHIN REACH.
--- NOTE | 2024-05-14 17:27 | NUR ---
PATIENT IS LYING IN BED WITH EYES CLOSED AND RESPIRATIONS ARE EVEN AND UNLABORED. CPOX AT THE BEDSIDE. SPO2 IS 91% ON ROOM AIR. CALL LIGHT AND PERSONAL BELONGINGS ARE WITHIN REACH.
[2024-05-14] MEDS ORDERED: ALBUTEROL SULFATE 0.083% 3 ML VIAL INH PRN (17:30)
--- NOTE | 2024-05-14 18:15 | NUR ---
PATIENT HOME BOTTLE OF ESTRADIOL PILLS DELIVERED BY THE PATIENTS DAUGHTER. PATIENT STATED "SHE TAKES IT AT NIGHT" AND MENTIONED THAT ASHOK SAID THE DOSE COULD BE VERIFIED TONIGHT. PATIENT IS ON ROOM AIR WITH THE CPOX AT THE BEDSIDE. SPO2 IS 94%. LEAD BURNER NOTIFIED OF THE SITUATION PHARMACY IS NOT IN HOUSE AT THIS TIME. PATIENT STATED NO FURTHER NEEDS AT THIS TIME. CALL LIGHT AND PERSONAL BELONGINGS ARE WITHIN REACH.
--- NOTE | 2024-05-14 19:32 | NUR ---
REPORT RECEIVED FROM DAY SHIFT RN. PT LYING IN BED ALERT AND ORIENTED. DENIES NEEDS. WHITE BOARD UPDATED. CALL LIGHT IN REACH. BED ALARM FOR SAFETY.
[2024-05-14] MEDS ORDERED: IPRATROPIUM BROMIDE 2.5 ML VIAL INH SCH (20:00)
[2024-05-14] MEDS ORDERED: ACETAMINOPHEN 500 MG TAB PO PRN (20:45)
[2024-05-14] MEDS ORDERED: TEMAZEPAM 15 MG CAP PO SCH (21:00)
[2024-05-14] MEDS ORDERED: ESTRADIOL 1 MG PO SCH (21:00)
--- NOTE | 2024-05-14 21:10 | NUR ---
EVENING ASSESSMENT COMPLETE. SCHEDULED MEDS ADMIN PER EMAR. PRN FOR 610 NÚÑEZ PAIN ADMIN. PT DENIES NAUSEA. 1L/NC IN PLACE. SpO2 LOW 90'S. TELE #[address] HR 80'S. COY PATENT WITH QS YELLOW URINE. NOTIFIED IVF BRIDGE ORDER HAD FALLEN OFF. MD TO PLACE NEW ORDERS. ASSISTED PT TO REPOSITION IN BED. PT DENIES QUESTIONS OR CONCERNS. CALL LIGHT IN REACH. BED ALARM FOR SAFETY.
--- NOTE | 2024-05-14 23:04 | NUR ---
PT RESTING IN BED WITH EYES CLOSED SNORING SOFTLY. SpO2 88% ON 1L/NC. OXYGEN TITRATED TO 2L/NC. SpO2 UP TO 91%.
[2024-05-15] VITALS (9 sets, daily range): BP systolic 150–173; BP diastolic 49–75
--- NOTE | 2024-05-15 00:30 | NUR ---
CPOX ALARMING. PT HAD REMOVED OXYGEN. SpO2 69% UPON ENTERING ROOM ON RA. OXYGEN REPLACED AND TITRATED UP BRIEFLY. PT WAKENED AND INSTRUCTED TO TAKE DEEP BREATHS THROUGH NOSE. PT ABLE TO RECOVER QUICKLY TO 96%. OXYGEN TITRATED BACK TO 2L/NC. 2PA TO REPOSITION IN BED. PT DENIES NEEDS. CALL LIGHT IN REACH. BED ALARM INTACT.
--- NOTE | 2024-05-15 01:45 | NUR ---
Provided Pt fresh ice water. No other needs expressed by Pt. Call light left in reach. Bed alarm set.
--- NOTE | 2024-05-15 03:16 | NUR ---
ASSISTED PT TO REPOSITION IN BED. SpO2 LOW 90'S WITH 2L/NC IN PLACE. PERSONAL FAN ON PER REQUEST. NO FURTHER NEEDS.
--- NOTE | 2024-05-15 04:10 | NUR ---
PT RESTING IN BED WITH EYES CLOSED. RESPIRATIONS EVEN. CALL LIGHT IN REACH.
[2024-05-15 05:12] LABS: BASOPHILS 0.2 % (0-2); EOSINOPHILS 1.8 % (0-6); HEMATOCRIT 29.1 % (35.0-50.0); HEMOGLOBIN 9.7 g/dL (12.0-18.0); LYMPHOCYTES 6.6 % (24-44); MCHC 33.4 g/dl (30-36); MCV 95.7 fl (81-99); MONOCYTES 7.9 % (0-12); NEUTROPHILS 83.5 % (39-80); PLATELET COUNT 114 K/uL (140-440); RBC 3.04 M/ul (4.3-5.7); RDW 14.6 (10.5-15.0)
[2024-05-15 05:26] LABS: ALBUMIN 2.1 g/dL (3.4-5.0); ALBUMIN/GLOBULIN RATIO 0.58 (1.1-2.4); ANION GAP 11.1 (7-21); BILIRUBIN, TOTAL 0.9 ng/dL (0.2-1.0); BUN/CREATININE RATIO 13.33 (6.0-28.6); CALCIUM 7.3 mg/dL (8.5-10.1); CREATININE, SERUM 1.95 mg/dL (0.55-1.02); MAGNESIUM 1.7 mg/dL (1.8-2.4); POTASSIUM 3.1 mmol/L (3.5-5.1); PROTEIN, TOTAL 5.7 g/dL (6.4-8.2)
--- NOTE | 2024-05-15 05:26 | NUR ---
LAB IN ROOM FOR MORNING DRAW. VS AND I&O OBTAINED. PT DENIES NEEDS. CALL LIGHT IN REACH.
--- NOTE | 2024-05-15 05:48 | NUR ---
CRITICAL LAB VALUE RECEIVED FROM LAB. BLOOD GLUCOSE 49. ACCU CHECK ON FLOOR 41. PT AWAKE AND TALKING. ORANGE JUICE WITH SUGAR PACKETS X 2 GIVEN. UPDATED. WILL RECHECK BLOOD SUGAR IN 15 MINUTES PER PROTOCOL.
--- NOTE | 2024-05-15 06:04 | NUR ---
CBG 77, PT ALERT AND ORIENTED, PUDING GIVEN. CONT TO ASSESS PER HYPOGLYCEMIA PROTOCOL
--- NOTE | 2024-05-15 07:30 | NUR ---
RECEIVED REPORT FROM MAURICIO BANKS. PT RESTING WITH EYES CLOSED, BREATHING EVEN AND UNLABORED. CALL LIGHT WITHIN REACH.
[2024-05-15] MEDS ORDERED: POTASSIUM CHLORIDE 10 MEQ TABCR PO ONE (08:15)
[2024-05-15] MEDS ORDERED: MAGNESIUM CHLORIDE 64 MG TABCR PO ONE (08:15)
[2024-05-15] MEDS ORDERED: ENOXAPARIN SODIUM 30 MG/0.3 ML SYR SUB-Q SCH (09:00)
--- NOTE | 2024-05-15 09:30 | NUR ---
PT AWAKE IN BED, DENIES PAIN OR SOB AT THIS TIME. MD TO BEDSIDE, PHYSICAL THERAPY AT THE BEDSIDE. PT GOES FOR WALK WITH THIS RN AND PHYSICAL THERAPIST, PT ABLE TO WALK TO END OF HALLWAY WITH FWW AND CONTACT GUARD ASSIST. LUNG SOUNDS DIMINISHED IN LOWER LOBES. TELE REMAINS IN PLACE. COY REMAINS IN PLACE, URINE CLEAR, YELLOW. ALLEVYN PLACED ON R KNEE ABRASION. DAUGHTER AT THE BEDSIDE. PT UP TO CHAIR, STATES NO NEEDS AT THIS TIME, CALL LIGHT WITHIN REACH.
--- NOTE | 2024-05-15 12:05 | NUR ---
PT UP TO CHAIR, TRANSFERS TO BED WITH SBA. PT DENIES PAIN, SOB, AND NAUSEA AT THIS TIME. PT STATES SHE WOULD LIKE TO TAKE A NAP AT THIS TIME, PLACED ON 2L OF O2 VIA NC D/T PT DESATTING DURING SLEEP. RT NOTIFIED. CALL LIGHT WTHIN REACH.
--- NOTE | 2024-05-15 14:06 | NUR ---
THIS RN NOTIFIES DR. SLATER REGARDING 101.3 DEGREE TEMPERATURE. STATES HE WILL ASSESS. NO NEW ORDERS AT THIS TIME.
--- NOTE | 2024-05-15 15:35 | NUR ---
PT REQUESTS CUP OF ICE, GIVEN. PT STATES NO FURTHER NEEDS AT THIS TIME, CALL LIGHT WITHIN REACH.
--- NOTE | 2024-05-15 16:09 | NUR ---
XRAY AT THE BEDSIDE.
[2024-05-15] MEDS ORDERED: AZITHROMYCIN 500 MG in DEXTROSE 5% 250 ML IV SCH (17:00)
[2024-05-15] MEDS ORDERED: CEFTRIAXONE/SODIUM CHLORIDE 2 GM/100 ML PIGGYBACK IV SCH (17:00)
--- NOTE | 2024-05-15 17:02 | NUR ---
DR. SLATER AT THE BEDSIDE UPDATING PT ON POC.
[2024-05-15 17:53] LABS: HEPATITIS A ANTIBODY, IGM Negative (Negative); HEPATITIS B CORE ANTIBODY, IGM Negative (Negative); HEPATITIS B SURFACE ANTIGEN Negative (Negative); HEPATITIS C AB CIA INTERP Negative (Negative); HEPATITIS C ANTIBODY CIA INDEX 0.06 IV (())
--- NOTE | 2024-05-15 18:33 | NUR ---
COVID SWAB COMPLETED AND SENT TO LAB.
[2024-05-15 19:19] LABS: INFLUENZA B NAA NEGATIVE (NEGATIVE); RESPIRATORY SYNCYTIAL VIR NAA NEGATIVE (NEGATIVE)
--- NOTE | 2024-05-15 19:41 | NUR ---
REPORT RECEIVED FROM DAY SHIFT RN. PT LYING IN BED ALERT AND ORIENTED. DENIES NEEDS. WHITE BOARD UPDATED. CALL LIGHT IN REACH.
--- NOTE | 2024-05-15 20:34 | NUR ---
EVENING ASSESSMENT COMPLETE. SCHEDULED MEDS ADMIN PER EMAR. PT DENIES PAIN OR NAUSEA AT THIS TIME. DENIES SOB. 2L/NC IN PLACE. SpO2 MID 90'S. LUNGS CLEAR THROUGHOUT. COY PATENT WITH CONCENTRATED URINE. ASSISTED PT TO REPOSITION IN BED. PT DENIES QUESTIONS OR CONCERNS. CALL LIGHT IN REACH.
[2024-05-15] MEDS ORDERED: estradioL 0.5 MG TABLET PO SCH (21:00)
[2024-05-15] MEDS ORDERED: TEMAZEPAM 15 MG CAP PO SCH (21:00)
--- NOTE | 2024-05-15 23:52 | NUR ---
PT RESTING IN BED WITH EYES CLOSED. RESPIRATIONS EVEN. CALL LIGHT IN REACH. BED ALARM FOR SAFETY.
--- NOTE | 2024-05-16 02:06 | NUR ---
BLOOD SUGAR CHECK 62. ORANGE JUICE AND APPLE SAUCE PROVIDED. PT COLD. TEMP 97.8. WARM BLANKET PROVIDED. ASSISTED PT TO REPOSITION IN BED. NO FURTHER NEEDS.
--- NOTE | 2024-05-16 04:00 | NUR ---
CPOX ALARMING. ISSUE RESOLVED. PT REPORTS "SORE" BACK 03/28. PRN FOR PAIN ADMIN PER EMAR. SBA TO RECLINER TO CHANGE POSITIONS. GAIT STEADY. NO FURTHER NEEDS. CALL LIGHT IN REACH.
[2024-05-16 05:13] VITALS: BP 159/64
[2024-05-16 05:29] LABS: BASOPHILS 0.2 % (0-2); EOSINOPHILS 2.6 % (0-6); HEMATOCRIT 26.5 % (35.0-50.0); HEMOGLOBIN 8.8 g/dL (12.0-18.0); LYMPHOCYTES 10.2 % (24-44); MCH 31.8 (27-36); MCHC 33.1 g/dl (30-36); MCV 95.9 fl (81-99); MONOCYTES 9.9 % (0-12); NEUTROPHILS 77.1 % (39-80); PLATELET COUNT 116 K/uL (140-440); RBC 2.77 M/ul (4.3-5.7); RDW 15.2 (10.5-15.0)
[2024-05-16 05:47] LABS: ALBUMIN 1.9 g/dL (3.4-5.0); ALBUMIN/GLOBULIN RATIO 0.54 (1.1-2.4); ANION GAP 13.5 (7-21); BILIRUBIN, TOTAL 0.5 ng/dL (0.2-1.0); BUN/CREATININE RATIO 11.92 (6.0-28.6); CALCIUM 6.9 mg/dL (8.5-10.1); CREATININE, SERUM 1.51 mg/dL (0.55-1.02); MAGNESIUM 1.7 mg/dL (1.8-2.4); POTASSIUM 3.5 mmol/L (3.5-5.1); PROTEIN, TOTAL 5.4 g/dL (6.4-8.2)
--- NOTE | 2024-05-16 05:51 | NUR ---
PT AWAKE SITTING IN RECLINER. VS AND I&O OBTAINED. SBA BACK TO BED, JOHN WELL. GAIT STEADY. NO C/O PAIN AT THIS TIME. PT REMAINS ON 2L/NC. SpO2 MID 90'S. HR 80'S. PT DENIES NEEDS. CALL LIGHT IN REACH.
[2024-05-16 05:56] VITALS: BP 159/64
[2024-05-16] MEDS ORDERED: MAGNESIUM CHLORIDE 64 MG TABCR PO ONE (07:45)
--- NOTE | 2024-05-16 07:51 | NUR ---
PT RESTING EYES CLOSED AT TIME OF SHIFT RE[PRT, LEFT UNDISTURBED. AWAKE NOW DECLINES OPENING OF BLINDS. AGREES SHE IS COMFORTABLE. CALL LIGHT AND FRESH H20 AT BEDSIDE.
[2024-05-16] MEDS ORDERED: ENOXAPARIN SODIUM 40 MG/0.4 ML SYR SUB-Q SCH (09:00)
[2024-05-16 09:42] VITALS: BP 146/56
--- NOTE | 2024-05-16 09:48 | NUR ---
In with pt for PRN Tylenol for 7 out of 10 frontal headache. Pt VS obtained by Estelle at this time. Ice pack also provided to pt to use on her forehead or back of neck if desired. Call light in reach. Denies any other needs at this time.
--- NOTE | 2024-05-16 10:24 | NUR ---
PT HAS CONTINUED RESTING IN BED THIS SHIFT ATE MUCH OF MORNING MEAL HAD A VISITOIR EARLIER. DR SLATER IN TO SEE HER PLAN GOING FORWARD DISCUSSED. PT AGREES TO AMBULATE THE HALLS SEVERAL TIMES THIS SHIFT. SATS 91% ON 1 L02 AT THIS TIME. CATH CARE COMPLETED AND EDUCATION PROVIDED
--- NOTE | 2024-05-16 11:08 | NUR ---
UR CLINICAL REVIEW: AMRILYN POPE- MEETS INPT MEDICARE FROM OBS TO INPT 05/15/24 @ 1131 NO AUTH REQUIRED PER MEDICARE RULES PLAN TO DC TO HOME VS. OTHER PLAN PENDING PT/OT RECOMMENDATIONS.
--- NOTE | 2024-05-16 11:15 | NUR ---
Spoke with Yoselin. She states she fell fro weakness and could not get her legs to work. She was in her apartment. Silvia heard her phone ringing and checked on her when she wasn't answering. She states her daughter Aldo feels she is having some confusion and wants her to move in with her. They live in the same apartment complex. Yoselin plans on closing her apartment and moving in with Aldo on dc. Pt has several pieces of DME and denies needing any more. Apartments have walk in showers. Pt denies any financial issues. Plans on dc to home when cleared medically.
--- NOTE | 2024-05-16 11:23 | NUR ---
PT IS UP AMBULATING THE MURRAY WITH P/T
[2024-05-16] MEDS ORDERED: TIOTROPIUM BROMIDE INH SCH (11:30)
--- NOTE | 2024-05-16 12:25 | NUR ---
PT SITTING UP IN THE CHAIR EATING NOON MEAL VISITOR IS PRESENT. SHE DENIES NEEDS AT THIS TIME CONTINUES ON 1 L02 SATS 91%
[2024-05-16 14:07] VITALS: BP 171/70
--- NOTE | 2024-05-16 14:29 | NUR ---
PT SLEEPING SOUNDLY ON 1 L02 SATS 89-95% CALL LIGHT AND NEEDED ITEMS IN REACH
[2024-05-16 18:20] VITALS: BP 195/65
--- NOTE | 2024-05-16 18:21 | NUR ---
DR SLATER CONTACTED R/T ELEVATED BP HE GIVES ORDER TO GIVE COZAAR EARLY AND WILL WRITE PRN FOR ANOTHER TIME
--- NOTE | 2024-05-16 18:27 | NUR ---
PT EATING FOOD FROM OUTSIDE OF HOSPITAL THIS SHIFT. REFUSES [employer] AND [employer] SERVED, FAMILY BRINGS MCDONAL[employer]. PT ORDERED TR[employer]I [employer] THIS EVENING BUT SENT IT BACK AND IS HAVING BISKITS AND GRAVY BROUGHT BY FAMILY.
[2024-05-16] MEDS ORDERED: hydrALAZINE HCL 20 MG/ML VIAL IV PRN (18:30)
--- NOTE | 2024-05-16 19:44 | NUR ---
REPORT RECEIVED FROM DAY SHIFT RN. PT LYING IN BED ALERT AND ORIENTED. REPORTS CONSTANT NAUSEA. PRN N/V ADMIN PER EMAR. DAUGHTER AT BEDSIDE. NO FURTHER NEEDS. WHITE BOARD UPDATED. CALL LIGHT IN REACH.
--- NOTE | 2024-05-16 20:47 | NUR ---
PT CALLED TO GO ON A WALK. PT TOOK A LAP WALK WITH WALKER BEHIND HER. PT IS NOW IN BED RESTING. PT HAS ICE WATER AND CALL LIGHT.
[2024-05-16 21:05] VITALS: BP 175/69
--- NOTE | 2024-05-16 21:27 | NUR ---
EVENING ASSESSMENT COMPLET. SCHEDULED MEDS ADMIN PER EMAR. PT BLOOD SUGAR 178. DISCUSSED WITH MD. TELEPHONE ORDERS RECEIVED VERIFIED WITH READBACK METHOD TO HOLD INSULIN DUE TO MORNING HYPOGLYCEMIA. PT REPORTS HEADACHE PAIN 01/26. PRN FOR PAIN ADMIN PER EMAR. O2 1L/NC IN PLACE. SpO2 93%. PT DENIES SOB. ASSISTED PT TO REPOSITION IN BED. PT DENIES QUESTIONS OR CONCERNS. CALL LIGHT IN REACH.
--- NOTE | 2024-05-16 22:41 | NUR ---
PT RESTING ON RIGHT SIDE WITH EYES CLOSED. RESPIRATIONS EVEN. SpO2 86% ON 1L/NC. OXYGEN TITRATED TO 2L TO BRING SpO2 TO 91%.
[2024-05-17] VITALS (10 sets, daily range): BP systolic 122–200; BP diastolic 48–88
--- NOTE | 2024-05-17 00:38 | NUR ---
CPOX ALARMING. SpO2 83% ON 2L/NC. PT SNORING SOFTLY. OXYGEN TITRATED TO 4L/NC TO MAINTAIN SATS >90%.
--- NOTE | 2024-05-17 01:54 | NUR ---
CALL LIGHT ANSWERED. PT WANTS TO SIT ON THE SIDE OF THE BED DUE TO FEELING LIKE "I CAN'T GET A DEEP BREATH." ASSISTED TO SIDE OF BED. SpO2 MID 90'S ON 2L/NC. HR 80'S. BP ELEVATED. PRN FOR HTN ADMIN PER EMAR. CRACKLES AUSCULTATED THROUGHOUT. RESPIRATIONS EVEN. PT ABLE TO TALK IN COMPLETE SENTENCES. DENIES CHEST PAIN. MD NOTIFIED. TELEPHONE ORDERS RECEIVED VERIFIED WITH READBACK TO ND IVF.
--- NOTE | 2024-05-17 02:34 | NUR ---
ASSISTED PT BACK TO BED. PT CONTINUES TO REPORT SOB. SpO2 MID 90'S WITH 2L/NC. HR 80'S. HOB ELEVATED. PERSONAL FAN UTILIZED. NO FURTHER NEEDS AT THIS TIME.
--- NOTE | 2024-05-17 04:55 | NUR ---
PT AWAKE IN BED. REPORTS BREATHING IMPROVED. VS AND I&O OBTAINED. PT REPORTS "CAFFEINE" HEADACHE. ICED TEA PROVIDED. PT DISCUSSING LOSS OF APPETITE AND "FOOD TASTES BAD." DIABETIC ENSURE OFFERED. NO FURTHER NEEDS AT THIS TIME. CALL LIGHT IN REACH.
[2024-05-17 05:24] LABS: HEMATOCRIT 27.5 % (35.0-50.0); MCH 31.5 (27-36); MCHC 32.9 g/dl (30-36); MCV 95.9 fl (81-99); PLATELET COUNT 118 K/uL (140-440); RBC 2.87 M/ul (4.3-5.7); RDW 15.2 (10.5-15.0)
[2024-05-17 05:39] LABS: BANDS, MANUAL DIFF 6; EOSINOPHILS, MANUAL DIFF 2; LYMPHOCYTES, MANUAL DIFF 17; MONOCYTES, MANUAL DIFF 3; NEUTROPHILS, MANUAL DIFF 72
[2024-05-17 05:43] LABS: ALBUMIN 1.8 g/dL (3.4-5.0); ALBUMIN/GLOBULIN RATIO 0.47 (1.1-2.4); ANION GAP 12.5 (7-21); BILIRUBIN, TOTAL 0.6 ng/dL (0.2-1.0); BUN/CREATININE RATIO 9.48 (6.0-28.6); CREATININE, SERUM 1.16 mg/dL (0.55-1.02); POTASSIUM 3.5 mmol/L (3.5-5.1); PROTEIN, TOTAL 5.6 g/dL (6.4-8.2)
--- NOTE | 2024-05-17 06:44 | NUR ---
bp 190/75, medicated with Hydralazine IV. pt awake, playing with phone. denies s/sx hypertension. primary RN Kandy notified
--- NOTE | 2024-05-17 07:26 | NUR ---
PT UP IN THE CHAIR AT TIME OF SHIFT REPORT DENIES PAIN OR SOB BUT DOES STATES SHE "JUST DOESN'T FEEL GOOD" NOC RN REPORTS ELEVATED BP ON HER SHIFT AND SOB VITALS TAKEN ANTICIPATE MORNING MEDS FOR BP SATS ARE 93% AT THIS TIME
--- NOTE | 2024-05-17 07:48 | NUR ---
WENT IN TO TAKE PT BLOOD SUGAR IT WAS 109 AND CHARTED. UPDATED BOARD ASKED PT IF SHE NEEDED ANYTHING ELSE, SHE DIDNT AND CALL LIGHT IS WITHIN REACH.
--- NOTE | 2024-05-17 08:40 | NUR ---
PERSONAL CARE ITEMS PROVIDED. PT UP IN THE CHAIR. DISCUSSED NUTRITION AT LENGTH PT C/O FOOD NOT TASTING GOOD. ENSURE PROVIDED PT ENCOURAGED TO JUST DRINK IT DOWN FOR THE SAKE OF NUTRITION. SNACK ITMES THAT SOUND APPETIZING DISCUSSED AND PROVIDED. PT DECLINES TO TRY TO DRINK ANY OF THE ENSURE CONTINUES TO C/O NOT FEELING WELL. PT IS WEEPY DESCRIBES BEING DEPRESSED. SHE STATES SHE NEEDS HER OWN SPIRIVA WHICH SHE GETS FROM [facility] THAT THE ONE PROVIDED HERE IS DIFFERENT. PHARMACY CONTACTED FOR EDUCATION.
--- NOTE | 2024-05-17 08:54 | NUR ---
DR SLATER IN TO SEE PT DISCUSSES PLAN GOING FORWARD ANSWERS PT QUESTIONS ADDRESSES CONCERNS.
[2024-05-17] MEDS ORDERED: TORSEMIDE 20 MG TAB PO SCH (09:00)
--- NOTE | 2024-05-17 09:26 | NUR ---
spoke with pt regarding moving to room with window and multiple visitors in room. pt stated she would like to move and would like to have no visitors today. moved to 115 and placed sign on door.
--- NOTE | 2024-05-17 09:38 | NUR ---
IN ROOM TO DC COY. PT PLACED SUPINE IN CHAIR, 10 CC OF SALINE REMOVED FROM COY BALLOON. COY REMOVED. PT TOLERATED WELL. DENIES ANY NEEDS AT THIS TIME. CALL LIGHT IN REACH.
--- NOTE | 2024-05-17 09:38 | NUR ---
PT MOVED TO ROOM WITH VIEW PER MD REQUEST BLINDS ARE LEFT OPEN. PT ENCOURAGED TO SHOWER THIS SHIFT SHE IS RESISTIVE TO THE IDEA. CLAM DIGGER NOTIFIED WILL FURTHER ENCOURAGE PT TO SHOWER AND DO PERSONAL CARES
--- NOTE | 2024-05-17 09:41 | NUR ---
ENTERING THE ROOM FOR ASSESSMENT PT IS TALKING TO VISITORS ABOUT HER INTENT TO MOVE TO THE BED (FROM THE CHAIR SHE IS SITTING IN) SO SHE CAN GET SOME SLEEP.
--- NOTE | 2024-05-17 10:00 | NUR ---
Spoke with Yoselin. Friends in the room, she denies any needs. No change in plan to move in with daughter on dc. Possible dc tomorrow or the next day.
--- NOTE | 2024-05-17 10:51 | NUR ---
PT RESTING IN BED EYES CLOSED
--- NOTE | 2024-05-17 11:10 | NUR ---
PT REQUESTED QUIET; NO VISIT. PROVIDED PRAYER.
--- NOTE | 2024-05-17 11:39 | NUR ---
PT VOIDING WITHOUT DIFFICULTY SHE IS USING THE BSC INDEPENDANTLY WHICH IS PLACED NEXT TO HER BED PER REQUEST. FRESH COFFEE PROVIDED PT D/O HEADACHE NORMALLY DRINKS CAFFINE DAILY. PT STILL RESTING IN BED ROOM TEMP ADJUSTED DENIES FURTHER NEED
--- NOTE | 2024-05-17 12:00 | NUR ---
SPOT CHECK BP IT IS ELEVATED PRN APRESOLINE ADMINISTERED
--- NOTE | 2024-05-17 12:20 | NUR ---
PT REFUSES LUNCH SERVED DENIES OFFER OF DIFFERENT ITEMS, HAS FOOD FROM DAUGHTER AT BEDSIDE SAYS SHE WILL SNACK ON THAT STUFF
--- NOTE | 2024-05-17 13:04 | NUR ---
Pt's daughter came out to let us know that the pt has a headache and is requesting some tylenol. Tylenol administered to pt per emar. Pt states she would like to take a nap as soon as her daughter leaves shortly. Advised pt that she can have a sleep mask and ear plugs to help her take a good nap, and that once she wakes, we will come in and help her get up to shower. The pt was agreeable to this. Sleep mask and ear plugs provided to patient and her daughter assisted her with donning them.
--- NOTE | 2024-05-17 13:23 | NUR ---
PT WEARING FACEMASK AND EARPLUGS RESTING SUPINE
--- NOTE | 2024-05-17 15:12 | NUR ---
Pt report received from MAURICIO [employer].
--- NOTE | 2024-05-17 17:04 | NUR ---
ZOFRAN GIVEN ORDERED FOR PT C/O NAUSEA.
--- NOTE | 2024-05-17 17:50 | NUR ---
PT SAID SHE WAS READY TO SHOWER. GOT THE BATHROOM SET UP. PT IS ABLE TO SHOWER ON HER OWN. PT IS AWARE THAT IF SHE NEEDED ANYTHING TO PULL THE CORD.
--- NOTE | 2024-05-17 18:08 | NUR ---
In for hourly rounding. Pt is sitting at the edge of the bed, after having showered with the help of her daughter. MAURICIO Bertrandod in with pt assisting her to dress and hanging IV ABX per emar.
--- NOTE | 2024-05-17 19:19 | NUR ---
In with pt for report of IV site is leaking and Heide Mccabe advised that her systolic BP is 200. IV dressing removed, IV catheter hub tightened (it was loose), and IV flushed with 10ml NS, flushes well, no leaking. IV site secured with new dressing and IV abx restarted. BP checked on left arm with a systolic reading of 203. 10mg hydralazine administered slow IVP per emar (for systolic greater than 160). Pt expresses concern over her elevated BP readings and states she wants to know what is causing this. Shortly before she called about the leaking IV, the pt was having nausea and vomiting. Assisted the pt by giving her mouthwash to rinse and spit, and by rinsing and brushing her dentures. Gave pt a cool wash cloth for her face and some scented nasal plugs to assist with decreasing her nausea by helping to eliminate the smells that bother her tummy. Lights turned down, side rails up x4, call light in reach. Television on.
--- NOTE | 2024-05-17 19:54 | NUR ---
REPORT RECEIVED FROM DAY SHIFT RN. PT LYING IN BED ALERT AND ORIENTED. DENIES NEEDS. WHITE BOARD UPDATED. CALL LIGHT IN REACH.
[2024-05-17] MEDS ORDERED: PROCHLORPERAZINE EDISYLATE 10 MG/2 ML VIAL IV PRN (20:15)
--- NOTE | 2024-05-17 20:55 | NUR ---
EVENING ASSESSMENT COMPLETE. SCHEDULED MEDS ADMIN PER EMAR. PRN FOR NAUSEA ADMIN PER EMAR. NO C/O PAIN AT THIS TIME. DENIES SOB. SpO2 88-92% ON RA. 1L/NC PLACED FOR NIGHT. CPOX IN PLACE. FINE CRACKLES AUSCULTATED BILAT LOWER LOBES. PT UP TO BSC TO VOID 300 ML YELLOW URINE. GAIT STEADY. BACK TO BED, JOHN WELL. LIGHTS OUT AND ROOM TEMP ADJUSTED PER REQUEST. PT DENIES FURTHER NEEDS. CALL LIGHT IN REACH.
[2024-05-17] MEDS ORDERED: MELATONIN 3 MG TAB PO SCH (21:00)
--- NOTE | 2024-05-17 21:49 | NUR ---
PT CALLED TO SEE IF SHE COULD SIT IN CHAIR. PT TRANSFERED WITH WALKER, AMBULATED ABOUT 3-5 FEET. PT SAID NAUSEA WENT AWAY AND SHE DOES NOT WANT TO BE LAYING IN BED ANYMORE.PT HAS A LIGHT BLANKET ON HER. PT HAS HER ICE WATER, PHONE AND CALL LIGHT. PT ASKED US TO TURN DOWN THE TEMPATURE IN THE ROOM BECAUSE SHE WAS GETTING HOT AGAIN.
--- NOTE | 2024-05-17 22:18 | NUR ---
PATHOLOGY SPECIALIST HELP PT FROM HER CHAIR BACK TO BED. PT WANTED THE MURRAY LIGHTS TURNED DOWN BUT WILL TRY HER EYE MASK LATTER FOR SLEEP.
--- NOTE | 2024-05-18 00:03 | NUR ---
PT RESTING IN BED ON RIGHT SIDE. RESPIRATIONS EVEN. CALL LIGHT IN REACH.
--- NOTE | 2024-05-18 00:37 | NUR ---
CPOX ALARMING. PT REMOVED NC. SpO2 85% ON RA. NC REPLACED AT 2L/NC. SpO2 ABOVE 90%. HR 90'S.
--- NOTE | 2024-05-18 02:16 | NUR ---
PT RESTING IN BED WITH EYES CLOSED. RESPIRATIONS EVEN. SpO2 94% ON 2L/NC.
--- NOTE | 2024-05-18 03:44 | NUR ---
ROUNDING NOTE. PT AWAKE IN BED. SBA TO RECLINER. ON RA SpO2 LOW 80'S AFTER ACTIVITY. PT DENIES SOB. 2L/NC PLACED. SpO2 LOW 90'S. ASSESSMENT COMPLETE. FINE CRACKLES HEARD IN BLL. ICE CHIPS PROVIDED. NO FURTHER NEEDS.
[2024-05-18 05:20] LABS: BASOPHILS 0.2 % (0-2); EOSINOPHILS 1.5 % (0-6); HEMATOCRIT 30.8 % (35.0-50.0); HEMOGLOBIN 10.2 g/dL (12.0-18.0); LYMPHOCYTES 12.8 % (24-44); MCH 31.4 (27-36); MCHC 32.9 g/dl (30-36); MCV 95.4 fl (81-99); MONOCYTES 8.1 % (0-12); NEUTROPHILS 77.4 % (39-80); PLATELET COUNT 182 K/uL (140-440); RBC 3.23 M/ul (4.3-5.7); RDW 14.8 (10.5-15.0)
[2024-05-18 05:22] VITALS: BP 197/67
[2024-05-18 05:32] LABS: ALBUMIN 2.2 g/dL (3.4-5.0); ALBUMIN/GLOBULIN RATIO 0.54 (1.1-2.4); ANION GAP 14.3 (7-21); BILIRUBIN, TOTAL 0.7 ng/dL (0.2-1.0); BUN/CREATININE RATIO 7.96 (6.0-28.6); CALCIUM 7.5 mg/dL (8.5-10.1); CREATININE, SERUM 1.13 mg/dL (0.55-1.02); POTASSIUM 3.3 mmol/L (3.5-5.1); PROTEIN, TOTAL 6.3 g/dL (6.4-8.2)
--- NOTE | 2024-05-18 05:58 | NUR ---
PT BACK TO BED FROM RECLINER. VS AND I&O OBTAINED. BP ELEVATED. PRN FOR HTN ADMIN PER EMAR. PRN TYLENOL ADMIN FOR GENERALIZED DISCOMFORT. PT ON RA AT THIS TIME. SpO2 LOW 90'S. NO FURTHER NEEDS. CALL LIGHT IN REACH.
--- NOTE | 2024-05-18 07:20 | NUR ---
RECEIVED REPORT FROM MAURICIO BANKS. PT SITTING AT THE EDGE OF BED, DENIES PAIN AT THIS TIME. PT REQUESTS ICE WATER, GIVEN. PT STATES NO FURTHER NEEDS AT THIS TIME. CALL LIGHT WITHIN REACH.
[2024-05-18] MEDS ORDERED: POTASSIUM CHLORIDE 10 MEQ TABCR PO ONE (07:45)
[2024-05-18 08:15] VITALS: BP 179/71
[2024-05-18 08:17] VITALS: BP 179/71
[2024-05-18] MEDS ORDERED: TIOTROPIUM BROMIDE INH SCH (09:00)
--- NOTE | 2024-05-18 09:00 | NUR ---
Spoke with Yoselin. She states she feels well today and wants to go home. She denies any needs. States she is waiting for a call from her daughter so she can transport her home. No needs.
[2024-05-18] MEDS ORDERED: CEFDINIR300 MG PO (09:58)
[2024-05-18 10:23] VITALS: BP 182/69
[2024-05-18 10:24] VITALS: BP 182/69
--- NOTE | 2024-05-18 10:24 | NUR ---
THIS RN NOTIFIES MD OF BLOOD PRESSURE, MD STATES HE IS PLACING ORDERS.
--- NOTE | 2024-05-18 10:41 | NUR ---
PT HAS "DO NOT ENTER!" SIGN ON DOOR. NO VISIT. PROVIDED PRAYER.
[2024-05-18] MEDS ORDERED: hydrALAZINE HCL 25 MG TAB PO ONE (10:45)
[2024-05-18 10:51] VITALS: BP 182/69
--- NOTE | 2024-05-18 10:54 | NUR ---
PT TAKES PO MEDICATION W/O DIFFICULTY, PT LEAVING WITH ALL ABOVE BELONGINGS, IV DC'D WNL. PT AMBULATES TO WHEELCHAIR INDEPENDENTLY, WHEELED TO FRONT OF BUILDING BY NURSING PERSONEL.
== END 2024-05-18 10:54 | disposition home or self-care (01) | DRG 682 ==
LOC: ED 19:09 → MS 19:10
PROVIDERS: Family Medicine; ADMIT Internal Medicine; ATTEND Internal Medicine
PROC: 0T9B70Z Drainage of Bladder with Drainage Device, Via Natural or Artificial Opening (ICD-10-PCS; principal; 2024-05-15)
DX: N17.9 Acute kidney failure, unspecified (principal); J18.9 Pneumonia, unspecified organism; J44.0 Chronic obstructive pulmonary disease with (acute) lower respiratory infection; R33.9 Retention of urine, unspecified; Z66 Do not resuscitate; I10 Essential (primary) hypertension; E11.9 Type 2 diabetes mellitus without complications; R74.01 Elevation of levels of liver transaminase levels; E87.6 Hypokalemia; E83.42 Hypomagnesemia; E78.00 Pure hypercholesterolemia, unspecified; W19.XXXA Unspecified fall, initial encounter; Z87.891 Personal history of nicotine dependence; Z90.710 Acquired absence of both cervix and uterus; Z88.5 Allergy status to narcotic agent; Z79.4 Long term (current) use of insulin; Z79.84 Long term (current) use of oral hypoglycemic drugs; Z79.899 Other long term (current) drug therapy
CPT/HCPCS: 36415; 51702; 51798; 70450; 71045; 72125; 74176; 76705; 80048; 80053; 80074; 80307; 81001; 81003; 83735; 84443; 85025; 86850; 86900; 86901; 87502; 94640; 94760; 94762; 96374; 97161; 97530; 99285-25; A9270; G0378; G0480; J0360; J0456; J0696; J0780; J1650; J1815; J2405; J3475; J7030; J7060; J7121; U0002

== ENCOUNTER 2024-06-27 19:38 | Emergency (ER) | payer MEDICARE ==
[~2024-06-27] VITALS: Ht 167.6 cm; Wt 74.0 kg
[~2024-06-27 19:38] MED LIST changes: +CELECOXIB200 MG PO; +VENTOLIN HFA18 GM INH
[2024-06-27 20:46] LABS: BILIRUBIN, URINE NEGATIVE (negative); BLOOD/HGB, URINE NEGATIVE (Negative); KETONE, URINE NEGATIVE (Negative); LEUK ESTERASE, URINE NEGATIVE (negative); NITRITE, URINE NEGATIVE (negative); PH, URINE 5.5 (5-7)
[2024-06-27] MEDS ORDERED: LIDOCAINE 2% VISCOUS 6 ML SYR TOP ONE (21:00)
[2024-06-27 21:12] LABS: AMPHETAMINES, URINE NEGATIVE (NEGATIVE); BARBITURATES, URINE NEGATIVE (NEGATIVE); BENZODIAZEPINE, URINE POSITIVE (NEGATIVE); BUPRENORPHINE, URINE NEGATIVE (NEGATIVE); CANNABINOID, URINE NEGATIVE (NEGATIVE); COCAINE, URINE NEGATIVE (NEGATIVE); ECSTASY, URINE NEGATIVE (NEGATIVE); FENTANYL, URINE NEGATIVE (NEGATIVE); METHADONE, URINE NEGATIVE (NEGATIVE); OPIATES, URINE NEGATIVE (NEGATIVE); OXYCODONE, URINE NEGATIVE (NEGATIVE); PHENCYCLIDINE, URINE NEGATIVE (NEGATIVE)
[2024-06-27 21:16] LABS: BASOPHILS 0.2 % (0-2); EOSINOPHILS 0.5 % (0-6); HEMATOCRIT 38.2 % (35.0-50.0); HEMOGLOBIN 12.5 g/dL (12.0-18.0); LYMPHOCYTES 14.3 % (24-44); MCH 31.5 (27-36); MCHC 32.8 g/dl (30-36); MCV 96.1 fl (81-99); MONOCYTES 6.2 % (0-12); NEUTROPHILS 78.8 % (39-80); PLATELET COUNT 257 K/uL (140-440); RBC 3.97 M/ul (4.3-5.7); RDW 14.9 (10.5-15.0)
[2024-06-27] MEDS ORDERED: DEXTROSE 50% 50 ML SYR ONE (21:31)
[2024-06-27 21:32] LABS: ALBUMIN/GLOBULIN RATIO 0.81 (1.1-2.4); ANION GAP 16.1 (7-21); BILIRUBIN, TOTAL 0.2 ng/dL (0.2-1.0); BUN/CREATININE RATIO 15.71 (6.0-28.6); CALCIUM 9.1 mg/dL (8.5-10.1); CREATININE, SERUM 1.4 mg/dL (0.55-1.02); POTASSIUM 4.1 mmol/L (3.5-5.1); PROTEIN, TOTAL 6.7 g/dL (6.4-8.2)
[2024-06-27] MEDS ORDERED: DEXTROSE 50% 50 ML SYR IV ONE (21:45)
[2024-06-27] MEDS ORDERED: LOSARTAN POTASSIUM 50 MG TAB PO ONE (22:30)
[2024-06-27] MEDS ORDERED: METOPROLOL TARTRATE 50 MG TAB PO ONE (22:30)
[2024-06-27] MEDS ORDERED: hydrALAZINE HCL 20 MG/ML VIAL IV ONE ×2 (22:30→23:30)
[2024-06-27] MEDS ORDERED: LABETALOL HCL 20 MG/4 ML VIAL IV ONE (23:30)
[2024-06-27 23:55] VITALS: BP 161/69
[2024-06-29] MEDS ORDERED: TRAMADOL HCL50 MG PO (15:35)
[2024-06-29] MEDS ORDERED: ALPRAZOLAM0.5 MG PO (15:38)
[2024-06-29] MEDS ORDERED: KLOR-CON 1010 MEQ PO (15:40)
[2024-06-29] MEDS ORDERED: VENTOLIN HFA18 GM INH (15:41)
[2024-06-29] MEDS ORDERED: VALIUM2 MG PO (15:42)
[2024-06-29] MEDS ORDERED: BIOTIN5000 MC2 PO (15:42)
[2024-06-29] MEDS ORDERED: HYDROXYZINE HCL25 MG PO (15:44)
[2024-06-29] MEDS ORDERED: RESTORIL15 MG PO (15:44)
[2024-06-29] MEDS ORDERED: COZAAR50 MG PO (15:45)
[2024-06-30] MEDS ORDERED: TAMSULOSIN HCL0.4 MG PO (09:38)
[2024-06-30] MEDS ORDERED: CELECOXIB200 MG PO (09:38)
== END 2024-06-28 00:11 | disposition home or self-care (01) ==
LOC: ED 19:38
PROVIDERS: Internal Medicine
DX: E11.649 Type 2 diabetes mellitus with hypoglycemia without coma (principal); R33.9 Retention of urine, unspecified; I10 Essential (primary) hypertension; Z87.891 Personal history of nicotine dependence; Z88.5 Allergy status to narcotic agent; Z79.4 Long term (current) use of insulin; Z79.84 Long term (current) use of oral hypoglycemic drugs; Z79.899 Other long term (current) drug therapy
CPT/HCPCS: 36415; 51702; 51798; 80053; 80307; 81003; 84443; 85025; 99284-25; J0360

== ENCOUNTER 2024-08-01 08:53 | Day surgery (SDC) | payer MEDICARE ==
[2024-07-26 16:34] VITALS: BP 148/82
[~2024-08-01] VITALS: Ht 167.6 cm; Wt 72.7 kg
[~2024-08-01 08:53] MED LIST changes: +ACID-PEP20 MG PO; +ALPRAZOLAM0.5 MG PO; +BIOTIN5000 MC2 PO; +CEFAZOLIN SODIUM 2 GM/20 ML SYR IV SCH; +COZAAR50 MG PO; +HYDROXYZINE HCL25 MG PO; +IBLOOD GLUCOSE TEST STRIP 1 EA TEST VI PRN; +KLOR-CON 1010 MEQ PO; +LACTATED RINGER'S 1,000 ML IV SCH; +LIDOCAINE HCL 1% 5 ML SDV INJ ONE; +RESTORIL15 MG PO; +SEVOFLURANE 250 ML BTL INH ONE; +TAMSULOSIN HCL0.4 MG PO; +TRAMADOL HCL50 MG PO; +VALIUM2 MG PO; +mitoMYcin 40 MG/20 ML VIAL BLADIN SCH
[2024-08-01] MEDS ORDERED: MORPHINE SULFATE 4 MG/ML VIAL IV PRN (09:00)
[2024-08-01] MEDS ORDERED: ondansetron HCL 4 MG/2 ML VIAL IV PRN ×2 (09:00→14:15)
[2024-08-01] MEDS ORDERED: OXYCODONE/APAP 5/325 TAB PO PRN (09:00)
[2024-08-01] MEDS ORDERED: HYDROmorphone HCL 1 MG/ML SYR IV PRN (09:00)
[2024-08-01] MEDS ORDERED: PROMETHAZINE HC25 M1 PO (09:18)
[2024-08-01] MEDS ORDERED: SPIRIVA18 MCG INH (09:22)
[2024-08-01] MEDS ORDERED: TOUJEO SOL300 UNIT/1 SUB-Q (09:25)
[2024-08-01] MEDS ORDERED: METFORMIN HCL500 M1 PO (09:30)
[2024-08-01] MEDS ORDERED: ONDANSETRON ODT4 MG PO (09:32)
[2024-08-01 09:48] VITALS: BP 185/68
[2024-08-01] MEDS ORDERED: LIDOCAINE HCL 4% 5 ML AMP ONE (11:22)
[2024-08-01] MEDS ORDERED: ROCURONIUM BROMIDE 50 MG/5 ML SYR ONE ×2 (11:22→13:22)
[2024-08-01] MEDS ORDERED: fentaNYL citrate 100 MCG/2 ML VIAL ONE (11:22)
[2024-08-01] MEDS ORDERED: LIDOCAINE HCL 2% 5 ML SDV ONE (11:22)
[2024-08-01] MEDS ORDERED: propofoL 200 MG/20 ML VIAL ONE (11:22)
[2024-08-01] MEDS ORDERED: MIDAZOLAM HCL 2 MG/2 ML VIAL ONE (11:46)
[2024-08-01] MEDS ORDERED: ondansetron HCL 4 MG/2 ML VIAL ONE (11:48)
[2024-08-01] MEDS ORDERED: DEXAMETHASONE SOD PHOS 4 MG/ML VIAL ONE (11:48)
[2024-08-01] MEDS ORDERED: ePHEDrine sulfate 50 MG/ML AMP ONE (12:23)
[2024-08-01] MEDS ORDERED: SODIUM CHLORIDE 0.9% 20 ML IV ONE (12:23)
[2024-08-01] MEDS ORDERED: ACETAMINOPHEN 1,000 MG/100 ML VIAL ONE (13:22)
[2024-08-01] MEDS ORDERED: estradioL 0.01% 42.5 GM TUBE ONE (13:47)
[2024-08-01] MEDS ORDERED: FLUORESCEIN SODIUM 500 MG/5 ML ML ONE (14:07)
[2024-08-01] MEDS ORDERED: SUGAMMADEX SODIUM 200 MG/2 ML ML ONE (14:08)
[2024-08-01] MEDS ORDERED: NALOXONE HCL 0.4 MG SYR IV PRN (14:15)
[2024-08-01] MEDS ORDERED: fentaNYL citrate 50 MCG/ML SDV IV PRN (14:15)
[2024-08-01] MEDS ORDERED: IBLOOD GLUCOSE TEST STRIP 1 EA TEST VI PRN (14:15)
[2024-08-01 15:34] VITALS: BP 166/64
[2024-08-01 16:37] VITALS: BP 176/75
[2024-08-01] MEDS ORDERED: CEFDINIR300 MG PO ×2 (17:13)
[2024-08-01] MEDS ORDERED: OXYCODONE HCL5 MG PO (17:14)
[2024-08-01 17:30] VITALS: BP 180/83
--- NOTE | 2024-08-08 17:22 | PATH ---
[facility] [address] [place], [place] [address] Signed SPECIMEN(S): A URETHRAL SLING MESH SPECIMEN(S): B POSTERIOR WALL BLADDER MASS SPECIMEN(S): C RIGHT URETHRAL ORIFICE MASS SPECIMEN SOURCE: A. URETHRAL SLING MESH B. POSTERIOR WALL BLADDER MASS C. RIGHT URETHRAL ORIFICE MASS CLINICAL HISTORY: Bladder mass, bladder obstruction, urinary retention, TURBT, release of sling FINAL PATHOLOGIC DIAGNOSIS: A. Urethral sling mesh: - Mesh as grossly described (gross diagnosis only) B. Bladder, posterior wall, transurethral resection: - Benign urothelial tissue with acute inflammation; negative for dysplasia or malignancy - No muscularis propria identified - Mesh as grossly described C. Bladder, right urethral orifice, transurethral resection: - Noninvasive low-grade papillary urothelial carcinoma, see synoptic report URINARY BLADDER: Biopsy and Transurethral Resection of Bladder Tumor (TURBT) Applies To: C SPECIMEN Procedure: Transurethral resection of bladder (TURBT) TUMOR Tumor Site: Right urethral orifice Histologic Type: Papillary urothelial carcinoma, noninvasive Histologic Grade: Low-grade Tumor Extent: Noninvasive papillary carcinoma Lymphatic and / or Vascular Invasion: Not identified Tumor Configuration: Papillary Muscularis Propria (detrusor muscle): Present in specimen COMMENT: As part of [facility]' Quality Improvement Program, this case was reviewed by another member of our pathology staff. BRP MICROSCOPIC EXAMINATION: PATIENT NAME: GEORGIE SAXENA PATHOLOGY DATE OF : 46 REPORT #: [id number] PHYSICIAN: ANTONIO PATHOLOGY PCP: JUSTIN STORM MD REPORT IS CONFIDENTIAL AND NOT TO BE RELEASED WITHOUT AUTHORIZATION [facility] [address] [place], [place] [address] Signed Histologic sections of all submitted blocks are examined by light microscopy. These findings, together with the gross examination, support the pathologic diagnosis. GROSS DESCRIPTION: A. The specimen, labeled and designated "Lul, Monico, urethral sling mesh," is received in formalin and consists of fragments of mesh with tightly adhesed pink-chanel soft tissue measuring 1.7 x 1.3 x 0.3 cm. The specimen is gross only. B. The specimen, labeled and designated "Halin, B, posterior wall bladder mass," is received in formalin and consists of multiple fragments pink-chanel rubbery soft tissue measuring 1.4 x 1.2 x 0.3 cm in aggregate. One of the fragments is consistent with a mesh fragment measuring 0.6 x 0.4 x 0.2 cm and is gross only. The soft tissue fragments entirely submitted in a single cassette. C. The specimen, labeled and designated "Lul, B, right urethral orifice mass," is received in formalin and consists of multiple fragments chanel rubbery soft tissue measuring 1.3 x 1.3 x 0.4 cm in area. The specimen entirely submitted in a single cassette. GARIMA (under the direct supervision of a pathologist) The Gross Description was prepared using a voice recognition system. The report was reviewed for accuracy; however, sound-alike word errors, addition and/or deletions may occur. If there is any question about this report, please contact Client Services. ADDITIONAL NOTES: Immunohistochemical and/or in situ hybridization studies if performed in this case included appropriate positive controls that reacted as expected. This test was developed and its performance characteristics determined by [facility]. It has not been cleared or approved by the U.S. Food and Drug Administration. The FDA has determined that such clearance or approval is not necessary. This test is used for clinical purposes. It should not be regarded as investigational or for research. [facility] is certified under the Clinical Laboratory Improvement Amendments of 1988 (CLIA) as qualified to perform high complexity clinical laboratory testing. PERFORMING LABORATORY: Technical component was performed by [facility], [address] [place] [id number] (CLIA# [id number]). Professional interpretation was PATIENT NAME: GEORGIE SAXENA PATHOLOGY DATE OF : 46 REPORT #: [id number] PHYSICIAN: [employer] [facility] PCP: JUSTIN STORM MD REPORT IS CONFIDENTIAL AND NOT TO BE RELEASED WITHOUT AUTHORIZATION [facility] [address] [place], [place] [address] Signed performed by [facility], [facility] (CLIA# [id number]). Diagnostician: Quinn Barr MD Pathologist Electronically Signed 08/08/2024 Copies: ~ PATIENT NAME: GEORGIE SAXENA PATHOLOGY DATE OF : 46 REPORT #: [id number] PHYSICIAN: ANTONIO ERICKSON PCP: JUSTIN STORM MD REPORT IS CONFIDENTIAL AND NOT TO BE RELEASED WITHOUT AUTHORIZATION
== END 2024-08-01 17:40 | disposition home or self-care (01) ==
LOC: DS 08:53
PROVIDERS: ATTEND Urology
PROC: 0TBB8ZZ Excision of Bladder, Via Natural or Artificial Opening Endoscopic (ICD-10-PCS; principal; 2024-08-01 10:45)
PROC: 0TSD0ZZ Reposition Urethra, Open Approach (ICD-10-PCS; 2024-08-01 10:45)
DX: D09.0 Carcinoma in situ of bladder (principal); N32.89 Other specified disorders of bladder; N32.0 Bladder-neck obstruction; R33.9 Retention of urine, unspecified; E78.5 Hyperlipidemia, unspecified; E78.00 Pure hypercholesterolemia, unspecified; E11.22 Type 2 diabetes mellitus with diabetic chronic kidney disease; I12.9 Hypertensive chronic kidney disease with stage 1 through stage 4 chronic kidney disease, or unspecified chronic kidney disease; N18.9 Chronic kidney disease, unspecified; Z79.899 Other long term (current) drug therapy; Z88.5 Allergy status to narcotic agent
CPT/HCPCS: 00912; 76000; 88300; 88305; C1769; C2617; J0131; J0690; J1100; J2250; J2405; J2704; J3010; J3490; J7121; J9280

== ENCOUNTER 2024-12-14 13:40 | Emergency (ER) | payer MEDICARE ==
[~2024-12-14] VITALS: Ht 167.6 cm; Wt 71.2 kg
[~2024-12-14 13:40] MED LIST changes: +BIOTIN5000 MC1 SL; -CEFAZOLIN SODIUM 2 GM/20 ML SYR IV SCH; -IBLOOD GLUCOSE TEST STRIP 1 EA TEST VI PRN; -LACTATED RINGER'S 1,000 ML IV SCH; -LIDOCAINE HCL 1% 5 ML SDV INJ ONE; +ONDANSETRON ODT4 MG PO; +OXYCODONE HCL5 MG PO; -SEVOFLURANE 250 ML BTL INH ONE; -mitoMYcin 40 MG/20 ML VIAL BLADIN SCH
[2024-12-14 14:01] LABS: BASOPHILS 0.4 % (0-2); EOSINOPHILS 2.9 % (0-6); HEMATOCRIT 35.9 % (35.0-50.0); HEMOGLOBIN 12.3 g/dL (12.0-18.0); LYMPHOCYTES 22.6 % (24-44); MCH 33.1 (27-36); MCHC 34.3 g/dl (30-36); MCV 96.6 fl (81-99); MONOCYTES 6.5 % (0-12); NEUTROPHILS 67.6 % (39-80); PLATELET COUNT 225 K/uL (140-440); RBC 3.71 M/ul (4.3-5.7); RDW 13.3 (10.5-15.0)
[2024-12-14 14:13] LABS: INR 0.98 (0.80-1.30); PROTIME 12.8 Sec (11.2-14.2)
[2024-12-14 14:15] LABS: PARTIAL THROMBOPLASTIN TIME 25.9 Sec (22.9-41.3)
[2024-12-14 14:25] LABS: ALBUMIN 2.9 g/dL (3.4-5.0); ALBUMIN/GLOBULIN RATIO 0.85 (1.1-2.4); ANION GAP 15.1 (7-21); BILIRUBIN, TOTAL 0.2 mg/dL (0.2-1.0); BUN/CREATININE RATIO 15.9 (6.0-28.6); CALCIUM 8.6 mg/dL (8.5-10.1); CREATININE, SERUM 1.76 mg/dL (0.55-1.02); POTASSIUM 4.1 mmol/L (3.5-5.1); PROTEIN, TOTAL 6.3 g/dL (6.4-8.2)
[2024-12-14 14:26] LABS: CORONAVIRUS COVID-19 AG NEGATIVE (NEGATIVE); INFLUENZA A AG NEGATIVE (NEGATIVE); INFLUENZA B AG NEGATIVE (NEGATIVE)
[2024-12-14] MEDS ORDERED: TENECTEPLASE 50 MG/10 ML VIAL IV ONE (14:30)
[2024-12-14 14:39] LABS: ALCOHOL, MEDICAL <3 ng/dL (<3); CHOLESTEROL 139 mg/dL (<200); CHOLESTEROL/HDL RATIO 3.7; HDL CHOLESTEROL 38 (40-60); LDL CHOLESTEROL 43 mg/dL (< 129); TRIGLYCERIDES 292 ng/dL (<150); VLDL CHOLESTEROL 58
[2024-12-14 16:11] LABS: AMPHETAMINES, URINE NEGATIVE (NEGATIVE); BARBITURATES, URINE NEGATIVE (NEGATIVE); BENZODIAZEPINE, URINE POSITIVE (NEGATIVE); BUPRENORPHINE, URINE NEGATIVE (NEGATIVE); CANNABINOID, URINE NEGATIVE (NEGATIVE); COCAINE, URINE NEGATIVE (NEGATIVE); ECSTASY, URINE POSITIVE (NEGATIVE); FENTANYL, URINE NEGATIVE (NEGATIVE); METHADONE, URINE NEGATIVE (NEGATIVE); OPIATES, URINE NEGATIVE (NEGATIVE); OXYCODONE, URINE NEGATIVE (NEGATIVE); PHENCYCLIDINE, URINE NEGATIVE (NEGATIVE)
[2024-12-14] MEDS ORDERED: LORazepam 2 MG/ML VIAL IV ONE (16:45)
[2024-12-14 17:11] VITALS: BP 187/71
--- NOTE | 2024-12-16 12:55 | EKG ---
[facility] [address] [facility] [place], [place] [address] Signed Normal sinus rhythm Normal ECG No previous ECGs available Confirmed by Radha Lala DO ([id number]) on 12/16/2024 12:54:57 PM Electronically Signed By: RADHA LALA DO 12/16/24 1255 PATIENT NAME: GEORGIE SAXENA Electrocardiogram DATE OF : 46 PHYSICIAN: RADHA LALA DO REPORT #: [id number] REPORT IS CONFIDENTIAL AND NOT TO BE RELEASED WITHOUT AUTHORIZATION
== END 2024-12-14 17:05 | disposition short-term general hospital (02) ==
LOC: ED 13:40
PROVIDERS: Emergency Medicine
DX: I63.9 Cerebral infarction, unspecified (principal); R27.0 Ataxia, unspecified; R29.704 NIHSS score 4; E11.9 Type 2 diabetes mellitus without complications; I10 Essential (primary) hypertension; E78.00 Pure hypercholesterolemia, unspecified; Z87.891 Personal history of nicotine dependence; Z88.5 Allergy status to narcotic agent; Z79.899 Other long term (current) drug therapy; Z79.890 Hormone replacement therapy; Z79.84 Long term (current) use of oral hypoglycemic drugs
CPT/HCPCS: 36415; 70450; 70496; 70498; 71045; 80053; 80061; 80307; 83036; 84484; 85025; 85610; 85730; 93005; 93010; 99285-25; G0480; J2060; J3101; Q9967